=== PATIENT | male | born 1950 | race Caucasian/White ===

== ENCOUNTER 2017-06-10 10:19 | Observation (INO) | payer OTHER ==
[2017-05-15 11:07] VITALS: BMI 26.0
--- NOTE | 2017-05-15 12:01 | PAT Medication Instructions ---
Service Date May 15, 2017. Current Home Medication List Ascorbic Acid (Vitamin C), 1 TAB PO QAM Aspirin (Aspirin Chewable), 81 MG PO QAM Baclofen (Lioresal), 20 MG PO BID Calcium/Vitamin D (Os-Jimmie 500 Plus D), 1 TAB PO QAM Cranberry (Vaccinium Macrocarp (Cranberry Extract), 2 CAP PO QAM Donepezil Hydrochloride (Aricept), 1 TAB PO HS Duloxetine Hcl (Cymbalta), 60 MG PO QAM Lisinopril (Zestril), 20 MG PO QAM Memantine Hcl (Namenda Xr), 1 CAP PO QPM Vitamin E (Cvs Vitamin E), QAM Medication Instructions For Your Scheduled Surgery - Check with surgeon for instructions: Aspirin (Aspirin Chewable), 81 MG PO QAM - Hold the following medications 2 weeks prior to surgery: Vitamin E (Cvs Vitamin E), QAM Cranberry (Vaccinium Macrocarp (Cranberry Extract), 2 CAP PO QAM - Hold the following medications the morning of surgery: Lisinopril (Zestril), 20 MG PO QAM Ascorbic Acid (Vitamin C), 1 TAB PO QAM Calcium/Vitamin D (Os-Jimmie 500 Plus D), 1 TAB PO QAM - Take the following medications the morning of surgery with a sip of water OTHERWISE NOTHING TO EAT OR DRINK AFTER MIDNIGHT: Baclofen (Lioresal), 20 MG PO BID Duloxetine Hcl (Cymbalta), 60 MG PO QAM - Take the following medications as scheduled the night before surgery: Memantine Hcl (Namenda Xr), 1 CAP PO QPM Baclofen (Lioresal), 20 MG PO BID Donepezil Hydrochloride (Aricept), 1 TAB PO HS If you have any questions please call us at [phone] or [phone] or [phone]
[2017-05-15 12:29] LABS: BASO % 0.5 %; BASO ABS # 0.04 K/uL (0-0.2); EOS % 1.8 %; EOS ABS # 0.16 K/uL (0-0.5); HEMATOCRIT 41.6 % (42-52); HEMOGLOBIN 14.1 g/dL (14.0-18.0); IG# 0.05 K/uL (0.00-0.02); LYMPH ABS # 1.06 K/uL (1.2-3.4); MEAN CELL VOLUME 90.2 fL (80-100); MEAN CORPUSCULAR HEMOGLOBIN 30.6 pg (25-34); MEAN CORPUSCULAR HGB CONC 33.9 g/dl (32-36); MEAN PLATELET VOLUME 10.3 fL (7.4-10.4); MONO % 6.7 %; MONO ABS # 0.59 K/uL (0.11-0.59); NEUT % 78.4 %; NEUT ABS # 6.91 K/uL (1.4-6.5); PLATELET COUNT 230 K/uL (130-400); RED CELL DISTRIBUTION WIDTH CV 13.4 % (11.5-14.5); RED CELL DISTRIBUTION WIDTH SD 43.7 fL (36.4-46.3); WHITE BLOOD COUNT 8.81 K/uL (4.8-10.8)
[2017-05-15 14:02] LABS: CALCIUM 9.4 mg/dl (8.5-10.1); CREATININE 0.88 mg/dl (0.60-1.40); POTASSIUM 4.3 mmol/L (3.5-5.1)
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
[2017-06-10] VITALS (9 sets, daily range): BP systolic 118–149; BP diastolic 72–83; PULSE 74–95; TEMP 36.5–36.8; O2SAT 96–100; Ht 180.3 cm; Wt 89.9 kg
[~2017-06-10] VITALS: Ht 180.3 cm; Wt 89.9 kg
[~2017-06-10 10:19] MED LIST: ASCA500 PO; ASPCH81X PO; BACL10TA PO; CALC500C70 PO; CEFAZOLIN 2000 MG/60 ML D5W 50 ML IV SCH; CRAN200C PO; DONE10TA12 PO; DULO60CA44 PO; LACTATED RINGER'S 1000ML 1,000 ML IV SCH; LISI-725 PO; MEMA1CAP6 PO; VITA-88 PO
[2017-06-10] MEDS ORDERED: VANCOMYCIN 1GM/270ML NSS IV SCH (11:00)
--- NOTE | 2017-06-10 11:40 | History & Physical Bridge Note ---
H&P Re-Evaluation Bridge Note: I have examined the patient, reviewed the History & Physical and in the interval since the performance of the History & Physical I have noted the following changes of clinical significance: No changes noted
[2017-06-10] MEDS ORDERED: LIDO 2%/EPINEPHRINE 1:100000 20 ML VIAL INFIL ONE (12:54)
[2017-06-10] MEDS ORDERED: BACITRACIN 50000 UNIT VIAL ONE (12:55)
[2017-06-10] MEDS ORDERED: BUPIVACAINE/EPINEPHRINE 0.25% 1:200,000 30 ML VIAL ONE (12:55)
[2017-06-10] MEDS ORDERED: DEXAMETHASONE SOD INJ 4 MG/ML VIAL ONE (12:57)
[2017-06-10] MEDS ORDERED: ONDANSETRON INJ 2 MG/ML 2 ML VIAL ONE (12:57)
[2017-06-10] MEDS ORDERED: GLYCOPYRROLATE INJ 0.2 MG/ML VIAL ONE ×2 (12:57→14:11)
[2017-06-10] MEDS ORDERED: LIDOCAINE HCL 2% 2 ML VIAL (20MG/ML) ONE (12:57)
[2017-06-10] MEDS ORDERED: NEOSTIGMINE METHYLSULFATE 5 MG/5 ML SYR ONE (12:58)
[2017-06-10] MEDS ORDERED: PROPOFOL IV EMULSION 10 MG/ML 20 ML VIAL IV ONE (12:58)
[2017-06-10] MEDS ORDERED: MIDAZOLAM HCL 1 MG/ML 2ML VIAL ONE (12:58)
[2017-06-10] MEDS ORDERED: FENTANYL CITRATE INJ 50 MCG/1 ML 2 ML VIAL ONE (12:58)
[2017-06-10] MEDS ORDERED: HYDROmorphone INJ 1 MG/ML SYR IV PRN (13:00)
[2017-06-10] MEDS ORDERED: FENTANYL CITRATE INJ 50 MCG/1 ML 2 ML VIAL IV PRN (13:00)
[2017-06-10] MEDS ORDERED: ONDANSETRON INJ 2 MG/ML 2 ML VIAL IV PRN (13:00)
[2017-06-10] MEDS ORDERED: EpHEDrine SULFATE INJ 50 MG/ML AMP IV PRN (13:00)
[2017-06-10] MEDS ORDERED: ATROPINE SULFATE 0.1 MG/ML 5ML SYR IV PRN (13:00)
[2017-06-10] MEDS ORDERED: EpHEDrine SULFATE 50MG/5ML SYR ONE (14:11)
[2017-06-10] MEDS ORDERED: PHENYLEPHRINE HCL INJ 10 MG/ML VIAL ONE (14:11)
[2017-06-10] MEDS ORDERED: SODIUM CHLORIDE 0.9% INJ 10 ML VIAL ONE (14:11)
[2017-06-10] MEDS ORDERED: EpHEDrine SULFATE INJ 50 MG/ML AMP ONE (14:11)
[2017-06-10] MEDS ORDERED: ARISTA ABSORBABLE HEMOSTAT 3GM IT ONE (15:32)
[2017-06-10] MEDS ORDERED: FLOSEAL HEMOSTATIC MATRIX 10ML TOP ONE (15:33)
--- NOTE | 2017-06-10 15:59 | [facility] Post Operative Brief Note ---
Immediate Operative Summary Operative Date Jun 10, 2017. Pre-Operative Diagnosis Intrathecal catheter fracture Post-Operative Diagnosis Same Procedure(s) Performed Replacement of Intrathecal Pain Pump and Catheter Delivery System, Reprogramming and Analysis Surgeon Dr. Coyne [employer] Worker Surgeon(s) Dr. Vieira Estimated Blood Loss 50 cc Findings uncomplicated pump revision Specimens A. Explanted hardware Drains none Anesthesia GA LMA Complication(s) None Disposition Recovery Room / PACU
[2017-06-10] MEDS ORDERED: ZOLPIDEM TARTRATE 5 MG TAB PO PRN (16:00)
[2017-06-10] MEDS ORDERED: ONDANSETRON INJ 8 MG in DEXTROSE 5% 50ML 50 ML IV PRN (16:00)
[2017-06-10] MEDS ORDERED: HYDROmorphone INJ 0.5 MG/0.5 ML SYR IV PRN (16:00)
[2017-06-10] MEDS ORDERED: MAGNESIUM CITRATE 296 ML/BTL PO PRN (16:00)
[2017-06-10] MEDS ORDERED: BACLOFEN TAB 20 MG TAB PO PRN (16:00)
[2017-06-10] MEDS ORDERED: ACETAMINOPHEN 500 MG TAB PO PRN (16:00)
--- NOTE | 2017-06-10 16:37 | Anesthesiology Progress Note ---
Anesthesia Post Op Note Date & Time Jun 10, 2017 at 16:37 Vital Signs Pain Intensity: 0 Vital Signs Past 12 Hours Date Time Temp Pulse Resp B/P (MAP) Pulse Ox O2 Delivery O2 Flow Rate FiO2 06/10/17 16:35 83 16 113/70 100 Nasal Cannula 3 06/10/17 16:25 87 16 111/70 100 Nasal Cannula 3 06/10/17 16:15 86 16 110/72 100 Oxymask 5 06/10/17 16:09 36.2 87 16 116/71 100 Oxymask 5 06/10/17 10:45 36.5 91 20 146/83 (104) 99 Room Air Notes Mental Status: alert / awake / arousable, participated in evaluation Pt Amnestic to Procedure: Yes Nausea / Vomiting: adequately controlled Pain: adequately controlled Airway Patency, RR, SpO2: stable & adequate BP & HR: stable & adequate Hydration State: stable & adequate Anesthetic Complications: no major complications apparent
--- NOTE | 2017-06-10 16:42 | Operative Note-Pain Management ---
Pain Clinic Operative Note Intrathecal REVISION, Catheter access port study, and Postprocedure Reprogramming and Analysis PREOPERATIVE DIAGNOSIS: Spinal cord injury with spasticity and fractured intrathecal catheter POSTOPERATIVE DIAGNOSIS: Same. COMPLICATIONS: None. SURGEON: Dr. Gina Coyne. Asst. Dr. Simmons EBL: 50ml ANESTHESIA: General. MATERIAL FORWARDED TO THE LAB: None. INDICATIONS: The patient is a known intrathecal catheter fracture and agreed to intrathecal pump and catheter revision. The patient was explained the risks, benefits, alternatives of the procedure and agreed to proceed as above. Informed consent was obtained and witnessed. A time out was performed after the patient was brought into the Operating Room. Antibiotics were given. SCDs were placed on the patient for DVT prophylaxis. The patient was then induced with general anesthesia without complications and was placed in left lateral decubitus position. Fluoroscopy was utilized throughout the procedure. The skin was prepped with duraprep and betadine and draped in sterile fashion. An 18- gauge spinal needle was used to gain access to the CSF through the L1-2 interspace. No heme was noted. Positive CSF flow was obtained and the intrathecal catheter was passed to the T10 vertebral body. The stylet was then removed. A 1-1/2 inch midline incision was made surrounding the intrathecal needle. Hemostasis was achieved. 4 separate pursestring sutures were placed to minimize CSF leakage. The intrathecal catheter was then secured to the fascia with 2 purse string 0 silk ties. Then the spinal needle was removed and a Kwartertronic butterfly anchor to secure the catheter to the underlying supraspinous ligament was utilized. There was positive CSF flow from the intrathecal catheter after anchoring of the catheter to the fascia. The incision was irrigated with bacitracin infused saline and hemostasis was excellent. Finally given history of CSF leak after last catheter revision 3 mL of FloSeal was utilized to minimize CSF leakage risk. Next the old pump was excised from the right lower quadrant a pocket for the intrathecal pump was made and hemostasis was achieved. Expansion of the pocket was on necessary and that capsule was ligated with electrocautery. Hemostasis was easily achieved with electrocautery and Surgicel. A passer was used to transfer the intrathecal pump catheter underneath the skin and subcutaneous tissues through to the pocket incision. After transfer of the end of the catheter to the pocket incision aspiration of the intrathecal catheter revealed positive CSF flow free flowing. The axial thoracic incisions was irrigated with 3 bulb syringes full of sterile normal saline with bacitracin. Hemostasis was achieved. The intrathecal pump was filled was rinsed and filled with morphine 5mg/ml per protocol. The intrathecal catheter was not trimmed. The sutureless connector was connected to the end the intrathecal pump and aspiration from of the end of the catheter was free-flowing. It was then connected to the intrathecal pump per protocol. The intrathecal pump was anchored in the pocket with 4 0 Prolene sutures. Alysha was utilized in both incisions to minimize bleeding. No complications were noted after the intrathecal pump was placed inside the pocket. The skin and subcutaneous tissues of both incisions were closed with O-VLOC sutures, then 3-0 VLOC sutures , followed by dermabond Prineo dressing. The skin was cleansed and dried and Xeroform followed by 4 x 4's and Tegaderms and pressure dressing Gauze fluffs were placed for closure dressings. An abdominal binder was placed on the patient. No complications were noted throughout the procedure. The patient tolerated the procedure and general anesthesia well and was extubated at the end of the procedure. The patient was then transferred back to the [facility] and was taken to the recovery room in stable condition. The patient will follow up with our clinic at 7 days for a wound check and further care. . Pump size inserted: 40ml Level of catheter: T10 Catheter was not trimmed Medication placed in pump: Baclofen 2000 mcg/mL to run at 99.9 g per day simple continuous mode I attest to the content of the Intraoperative Record and any orders documented therein. Any exceptions are noted below.
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
[2017-06-10] MEDS ORDERED: VANCOMYCIN IV 1,000 MG in SODIUM CHLORIDE 0.9% 250ML 250 ML IV SCH (18:00)
--- NOTE | 2017-06-10 19:34 | NUR ---
A: Patient resting in room. denies CP or SOB. VSS. Dressing to abdomen intact. + pedal pulses. able to move toes. Verbalizes "feeling much better" call morley within reach. Verbalizes no needs at this time.
[2017-06-10] MEDS: DOCUSATE SODIUM 100 MG CAP PO SCH (20:04)
[2017-06-10] MEDS ORDERED: DONEPEZIL HCL 10 MG TAB PO SCH (21:00)
[2017-06-10] MEDS ORDERED: IV FLUIDS COMPLETED PRN (21:15)
[2017-06-11 00:02] VITALS: O2SAT 98
--- NOTE | 2017-06-11 00:02 | NUR ---
A: Patient A&O, denies pain, reports "legs aren't jumping anymore." Patient able to move B/L toes and able to lift B/L legs off bed. Dressing to midline abdomen and lower back, both dry and intact, no shadowing noted. Abdominal binder intact. Patient voices no complaints, call morley in reach. Repositioned for comfort. Will monitor.
[2017-06-11 03:26] VITALS: BP 98/58; PULSE 77; TEMP 36.7; O2SAT 95
--- NOTE | 2017-06-11 04:00 | NUR ---
A: Patient resting through the night, no change from previous assessment. See Interventions for complete assessment. Call morley in reach.
[2017-06-11 07:41] VITALS: BP 147/88; PULSE 91; TEMP 36.8; O2SAT 95
--- NOTE | 2017-06-11 07:45 | NUR ---
A/ID; Patient resting in bed smiling at staff. c/o arthritic pain in bilateral hands. dressings x3 C/D/I. abdominal binder intact. noted small amount of spasms in bilateral legs. SR with PAC in 90's. Patient is able to raise his legs off bed and wiggles his toes. repositioned. call morley within reach.
[2017-06-11] MEDS: DOCUSATE SODIUM 100 MG CAP PO SCH (07:48)
[2017-06-11 08:00] VITALS: O2SAT 98
[2017-06-11] MEDS ORDERED: PNEUMOCOCCAL POLYSACCHARIDES 25 MCG/0.5 ML VIAL/SYR IM. ONE (08:00)
[2017-06-11] MEDS ORDERED: PNEUMOCOCCAL ADMINISTRATION CHARGE ONE (08:00)
[2017-06-11] MEDS ORDERED: DULOXETINE HCL 60 MG CAP PO SCH (09:00)
[2017-06-11] MEDS ORDERED: ASCORBIC ACID 500 MG TAB PO SCH (09:00)
[2017-06-11] MEDS ORDERED: LISINOPRIL 20 MG TAB PO SCH (09:00)
[2017-06-11] MEDS ORDERED: CALCIUM 600MG + VIT D 400 IU TAB PO SCH (09:00)
--- NOTE | 2017-06-11 09:22 | NUR ---
Dr. Simmons was in rounding. dressings changed. Baclofen increased by 5 mg's for mild leg spasms. patient is being discharge to home today. Neville was made aware. Call morley within reach.
--- NOTE | 2017-06-11 09:22 | Discharge Instructions ---
Discharge Instructions Date of Service Jun 11, 2017. Visit Reason for Visit: Lower Extremity Spastic Paraparesis from thoracic spinal cord injury. Nonfunctioning intrathecal baclofen delivery system. Implantation of new intrathecal drug delivery system with baclofen infusion. Discharge Discharge Diagnosis / Problem: post traumatic spinal cord injury spasticity Discharge Goals Goal(s): Decrease discomfort Medications Stopped Medications Name(s): Oral baclofen Activity Recommendations Activity Recommendations: no lifting of items 5lbs or more, no repetitive bending, no repetitive twists, no repetitive reaching over head Lifting Limitations: no more than 5 pounds Exercise/Sports Limitations: until after follow-up appointment May Resume Sexual Activity: after follow-up appointment Shower/Bathe: may shower/bathe in 3 days Driving or Machine Use: Anesthesia . Post Anesthesia Instructions: If you have had General Anesthesia or IV Sedation: * Do not drive today. * Resume driving when surgeon permits. * Do not make important decisions or sign legal documents today. * Call surgeon for: * Temperature elevations greater than 101 degrees F. * Uncontrollable pain. * Excessive bleeding. * Persistent nausea and vomiting. * Medication intolerance (nausea, vomiting or rash). * For nausea and vomiting use only clear liquids such as: tea, soda, bouillon until nausea subsides, then gradually increase diet as tolerated. * If you have any concerns or questions, call your surgeon's office. If physician is unavailable and it is an emergency, call [phone] or go to the nearest emergency room. . Instructions Instructions / Follow-Up . * Change dressings daily. Apply sterile dry gauze. * Call [facility] [phone] or go to the nearest emergency room if he experience high fevers, new back pain, new neurological symptoms such as numbness or weakness in the lower extremity or new bowel bladder incontinence. Also of call if he experience a headache that is positional. * Wear abdominal binder. * No showers for 3 days. * Resume normal activity. No repetitive bending, twisting or reaching overhead for 2 weeks. Do not lift more than 5 pounds for 2 weeks. . Follow-Up Follow-Up: 1 week in office for wound check Diet Recommendations Home Diet: resume previous diet Procedures Procedures Performed: Replacement of Intrathecal Pain Pump and Catheter Delivery System, Reprogramming and Analysis Pending Studies Studies pending at discharge: no Medical Emergencies . Who to Call and When: Medical Emergencies: If at any time you feel your situation is an emergency, please call 911 immediately. . Non-Emergent Contact Non-Emergency issues call your: Primary Care Provider, Pain Management provider Call Non-Emergent contact if: temperature is above 101.5, your pain is not controlled, wound has increased drainage, wound has increased redness . . "Provider Documentation" section prepared by Ray Vieira. . [place] Drug Monitoring Program Search Results: patient reviewed within database, no issues identified
[2017-06-11] MEDS: HYDROCODONE/ACETAMIN 5/325MG TAB PO PRN ×2 (09:36→14:56)
--- NOTE | 2017-06-11 09:36 | NUR ---
Patient c/o arthritis in his fingers. medication given per order.
--- NOTE | 2017-06-11 10:12 | Discharge Summary ---
Discharge Summary Date of Service Jun 11, 2017. Discharge Summary Admission Date: Jun 10, 2017 at 16:07 Discharge Date: Jun 11, 2017 Discharge Disposition: Home Principal Diagnosis: Spasticity Procedures: Implantation of intrathecal medication delivery system Vaccinations: None Consultations: None Pending Studies/Follow-Up: None Medication Reconciliation Continued Medications: Ascorbic Acid (Vitamin C) 500 Mg Tab 1 TAB PO QAM Aspirin (Aspirin Chewable) 81 Mg Chew 81 MG PO QAM Calcium/Vitamin D (Os-Jimmie 500 Plus D) Tab 1 TAB PO QAM, TAB Cranberry (Vaccinium Macrocarp (Cranberry Extract) 200 Mg Cap 2 CAP PO QAM Donepezil Hydrochloride (Aricept) 10 Mg Tab 1 TAB PO HS for 30 Days, #30 TAB 5 Refills Duloxetine Hcl (Cymbalta) 60 Mg Cap 60 MG PO QAM, CAP Lisinopril (Zestril) 20 Mg Tab 20 MG PO QAM, TAB Memantine Hcl (Namenda Xr) 21 Mg Cap 1 CAP PO QPM Vitamin E (Cvs Vitamin E) 400 Unit Cap QAM Discontinued Medications: Baclofen (Lioresal) 10 Mg Tab 20 MG PO BID, TAB Hospital Course Uneventful POD 1. Pump increased to 105 mcg/day Total time spent on discharge = This includes examination of the patient, discharge planning, medication reconciliation, and communication with other providers. Discharge Instructions Given
--- NOTE | 2017-06-11 10:33 | Pain Management Progress Note ---
Pain Management Progress Note Date of Service Jun 11, 2017. Subjective Improved spasms with intrathecal baclofen at 100 mcg/24 hr dose. Able to sleep well last night without being awakened at night. Reports minimal pain at wound sites. Objective Vital Signs: Last Vital Signs Documentation Date Time Temp Pulse Resp B/P (MAP) Pulse Ox O2 Delivery O2 Flow Rate FiO2 06/11/17 07:41 36.8 91 18 147/88 (107) 95 Room Air 06/10/17 22:00 2.0 Laboratory Laboratory Findings 05/15/17 12:04 Red Blood Count 4.61 L, Mean Corpuscular Volume 90.2, Mean Corpuscular Hemoglobin 30.6, Mean Corpuscular Hemoglobin Concent 33.9, Mean Platelet Volume 10.3, Neutrophils (%) (Auto) 78.4, Lymphocytes (%) (Auto) 12.0, Monocytes (%) ( Auto) 6.7, Eosinophils (%) (Auto) 1.8, Basophils (%) (Auto) 0.5, Neutrophils # ( Auto) 6.91 H, Lymphocytes # (Auto) 1.06 L, Monocytes # (Auto) 0.59, Eosinophils # (Auto) 0.16, Basophils # (Auto) 0.04 [place] Drug Monitoring [place] Search Results: patient reviewed within database Assessment 1. Spasticity due to thoracic spinal cord injury. S/P Implantation, analysis and reprograming of intrathecal baclofen system. Uneventful POD 1. Recommendations 1. Dressings changed. No evidence of bleeding or discharge. 2. Discharge home today.
[2017-06-11 11:34] VITALS: BP 113/61; PULSE 80; TEMP 36.6; O2SAT 96
[2017-06-11 12:26] VITALS: BP 113/61; PULSE 80; TEMP 36.6; O2SAT 96
--- NOTE | 2017-06-11 12:33 | NUR ---
Discharge instructions given to patient with him verbalizing understanding. Requested this RN also go over instruction with his . saline lock dc'd/ cath tip intact. Pressure dressing applied. Prescription for Baclofen 10 mg's and [place] 5/325 for count of 45 given to patient per order. half dressed. waiting on for discharge.
--- NOTE | 2017-06-11 13:08 | Anesthesiology Progress Note ---
Anesthesia Post Op Note Date & Time Jun 11, 2017 at 13:07 Vital Signs Vital Signs Past 12 Hours Date Time Temp Pulse Resp B/P (MAP) Pulse Ox O2 Delivery O2 Flow Rate FiO2 06/11/17 12:26 36.6 80 18 96 Nasal Cannula 06/11/17 12:00 Room Air 06/11/17 11:34 36.6 80 18 113/61 (78) 96 Room Air 06/11/17 08:00 98 Room Air 06/11/17 07:41 36.8 91 18 147/88 (107) 95 Room Air 06/11/17 04:05 Room Air 06/11/17 03:26 36.7 77 18 98/58 (71) 95 Room Air
--- NOTE | 2017-06-11 14:31 | NUR ---
Patient in wheelchair all ready to go home. just arrived. rings and c/o muscle spasms every 20 seconds in right leg. Stated "It keeps jumping up!" " I was told to call!" Dr. Simmons was called.
--- NOTE | 2017-06-11 15:05 | NUR ---
Dr. Simmons's office was called. This RN spoke with RN and PA. Order received to give Baclofen 10 mg's and that if patient continue to have spasms. patient is to call office. They can increase dose tomorrow but not today because it was already increased. patient also c/o back pain and requested [place]. Both werre given and patient left with his with belongings to door in wheelchair.
[2017-06-17] MEDS ORDERED: HYDR-5688 PO (10:45)
[2017-07-18] MEDS ORDERED: ZFRI4 IV (18:26)
[2017-07-18] MEDS ORDERED: LRS10 PO (18:26)
[2017-07-18] MEDS ORDERED: MRLP17X PO (18:26)
[2017-07-18] MEDS ORDERED: DLDI.5 IV (18:26)
== END 2017-06-11 15:18 | disposition home or self-care (01) ==
LOC: C.ACU 10:19 → C.2T 16:07 → ENRESERV 16:49
PROVIDERS: ADMIT Anesthesiology; ATTEND Anesthesiology
DX: T85.610A Breakdown (mechanical) of cranial or spinal infusion catheter, initial encounter (principal); Y83.8 Other surgical procedures as the cause of abnormal reaction of the patient, or of later complication, without mention of misadventure at the time of the procedure; M62.838 Other muscle spasm; I10 Essential (primary) hypertension; M19.90 Unspecified osteoarthritis, unspecified site; Z88.0 Allergy status to penicillin; Z79.82 Long term (current) use of aspirin; Z98.890 Other specified postprocedural states; N31.8 Other neuromuscular dysfunction of bladder

== ENCOUNTER 2017-07-14 23:13 | Inpatient (IN) | payer OTHER ==
[~2017-07-14] VITALS: Ht 180.3 cm; Wt 95.0 kg
[~2017-07-14 23:13] MED LIST changes: -BACL10TA PO; -CEFAZOLIN 2000 MG/60 ML D5W 50 ML IV SCH; +HYDR-5688 PO; -LACTATED RINGER'S 1000ML 1,000 ML IV SCH
--- NOTE | 2017-07-14 23:48 | EMERGENCY ROOM VISIT NOTE ---
History Report prepared by Kassandra: Lovely Calixto Under the Supervision of: Dr. Suzanne Luna D.O. First contact with patient: 23:22 Chief Complaint: WOUND INFECTION Stated Complaint: SURGICAL SITE LEAKING, FEVER History of Present Illness The patient is a 67 year old male who presents to the Emergency Room with complaints of an episode of a possible wound infection. The patient reports his baclofen pump is "leaking pus". The patient had his pump put in on June 10. This is the patient's fourth pump. Per , the patient's line broke in his last pump so he had to have it replaced. At baseline, the patient is in the a wheelchair. Per , the patient had a back injury which is why he is in a wheelchair. The patient notes a fever of 103 degrees Fahrenheit occurring this afternoon. The patient notes increased back pain and decreased appetite over the past couple days. He also notes intermittent spasms which worsen when he moves. He states these spasms are new for him. The patient self catheterizes and his was concerned he had a UTI. The patient's brought a urine sample to the patient's PCP today and he was started on Keflex. He states he took one dose of the antibiotic so far. Source of History: patient Position: other (possible) Quality: other (wound infection) Timing: other (episode) Associated Symptoms: + fevers, + back pain Note: The patient notes decreased appetite and muscle spasms. Review of Systems See HPI for pertinent positives & negatives. A total of 10 systems reviewed and were otherwise negative. 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 Social History Smoking Status: Never Smoker Marital Status: Occupation Status: disabled Current/Historical Medications Scheduled Ascorbic Acid (Vitamin C), 1 TAB PO QAM Aspirin (Aspirin Chewable), 81 MG PO QAM Calcium/Vitamin D (Os-Jimmie 500 Plus D), 1 TAB PO QAM Cranberry (Vaccinium Macrocarp (Cranberry Extract), 2 CAP PO QAM Donepezil Hydrochloride (Aricept), 10 MG PO HS Duloxetine Hcl (Cymbalta), 60 MG PO QAM Hydrocodone/Acetaminophen 5MG/325MG ([place] 5MG/325MG), 0.5 TAB PO BID Lisinopril (Zestril), 20 MG PO QAM Memantine Hcl (Namenda Xr), 1 CAP PO QPM Vitamin E (Cvs Vitamin E), 400 MG PO QAM Allergies Coded Allergies: Penicillins (Verified Allergy, Unknown, UNKNOWN, 07/14/17) Sulfamethoxazole w/Trimethoprim (Verified Allergy, Unknown, PENIS RED, INFECTION, 07/14/17) Haloperidol (Unverified Adverse Reaction, Intermediate, Confusion,agitated ,hallucinations, 07/14/17) Physical Exam Vital Signs Date Time Temp Pulse Resp B/P (MAP) Pulse Ox O2 Delivery O2 Flow Rate FiO2 07/15/17 02:58 97 18 104/52 91 Room Air 07/15/17 02:32 37.4 07/15/17 02:10 92 Room Air 07/15/17 02:08 97 16 117/56 92 Room Air 07/15/17 00:20 94 07/14/17 23:15 36.8 97 18 128/76 98 Room Air Physical Exam HEENT: Head - normocephalic and atraumatic Pupils are equal, round, and reactive to light. Extraocular eye muscles are intact, and sclera are anicteric. Nose - moist nasal mucosa without discharge. Mouth - dry buccal mucosa. Oropharynx is nonerythematous and there is no tonsillar exudate or edema noted. Neck: Supple; no JVD, nuchal rigidity, cervical lymphadenopathy, or auscultated bruits. Heart: Tachycardic rate and regular rhythm. There is a normal S1 and S2 with no murmurs, clicks, or gallops appreciated. Lungs: Clear to auscultation bilaterally with no wheezes, rales, or rhonchi. Abdomen: Moderate erythema in RLQ surrounding surgical incision with obvious pus coming from the incision. Soft, completely nontender, nondistended, with good bowel sounds. There are no palpable pulsatile masses or hepatosplenomegaly. There is no guarding, rigidity, or rebound noted. Extremities: No evidence of cyanosis, clubbing, or edema. There are easily palpable peripheral pulses. Skin: Hot and dry with good turgor and no rashes. Medical Decision & Procedures ER Provider Diagnostic Interpretation: Radiology results as stated below per my review and the radiologist's interpretation: CT ABDOMEN & PELVIS With Contrast: Ovoid fluid collection with trace air superior to the right lower quadrant subcutaneous pump, measuring 10.1 x 2.56 cm , suspicious for abscess. 3.6 x 1.8 cm fluid collection adjacent to catheter tubing posterior to the L1 spinous process, possible contained catheter leak versus abscess. Cholelithiasis. Gallbladder is nondistended. Appendix is normal. Colonic diverticulosis without evidence of diverticulitis. Small hiatal hernia. IVC filter is present. Partially imaged thoracic spinal fusion hardware. Radiologist: Nitish Ochoa Portable Chest X-ray: Mcclain rods in place no pulmonary infiltrates or pulmonary effusions. Laboratory Results 07/15/17 00:05 Red Blood Count 4.30, Mean Corpuscular Volume 90.2, Mean Corpuscular Hemoglobin 29.3, Mean Corpuscular Hemoglobin Concent 32.5, Mean Platelet Volume 10.4, Neutrophils (%) (Auto) 87.3, Lymphocytes (%) (Auto) 5.7, Monocytes (%) (Auto) 6.5, Eosinophils (%) (Auto) 0.0, Basophils (%) (Auto) 0.1, Neutrophils # (Auto) 19.30, Lymphocytes # (Auto) 1.26, Monocytes # (Auto) 1.44, Eosinophils # (Auto) 0.00, Basophils # (Auto) 0.03 07/15/17 00:05 Test 07/15/17 00:05 07/15/17 00:28 07/15/17 00:30 White Blood Count 22.11 K/uL (4.8-10.8) Red Blood Count 4.30 M/uL (4.7-6.1) Hemoglobin 12.6 g/dL (14.0-18.0) Hematocrit 38.8 % (42-52) Mean Corpuscular Volume 90.2 fL (80-100) Mean Corpuscular Hemoglobin 29.3 pg (25-34) Mean Corpuscular Hemoglobin Concent 32.5 g/dl (32-36) Platelet Count 177 K/uL (130-400) Mean Platelet Volume 10.4 fL (7.4-10.4) Neutrophils (%) (Auto) 87.3 % Lymphocytes (%) (Auto) 5.7 % Monocytes (%) (Auto) 6.5 % Eosinophils (%) (Auto) 0.0 % Basophils (%) (Auto) 0.1 % Neutrophils # (Auto) 19.30 K/uL (1.4-6.5) Lymphocytes # (Auto) 1.26 K/uL (1.2-3.4) Monocytes # (Auto) 1.44 K/uL (0.11-0.59) Eosinophils # (Auto) 0.00 K/uL (0-0.5) Basophils # (Auto) 0.03 K/uL (0-0.2) RDW Standard Deviation 44.5 fL (36.4-46.3) RDW Coefficient of Variation 13.6 % (11.5-14.5) Immature Granulocyte % (Auto) 0.4 % Immature Granulocyte # (Auto) 0.08 K/uL (0.00-0.02) Prothrombin Time 10.3 SECONDS (9.0-12.0) Prothromb Time International Ratio 1.0 (0.9-1.1) Activated Partial Thromboplast Time 31.7 SECONDS (21.0-31.0) Partial Thromboplastin Ratio 1.2 Anion Gap 10.0 mmol/L (3-11) Estimated GFR () 86.1 Estimated GFR (Non- 74.3 BUN/Creatinine Ratio 25.7 (10-20) Calcium Level 9.2 mg/dl (8.5-10.1) Total Bilirubin 0.7 mg/dl (0.2-1) Aspartate Amino Transf (AST/SGOT) 41 U/L (15-37) Alanine Aminotransferase (ALT/SGPT) 34 U/L (12-78) Alkaline Phosphatase 85 U/L (45-117) Total Protein 8.0 gm/dl (6.4-8.2) Albumin 3.1 gm/dl (3.4-5.0) Globulin 4.9 gm/dl (2.5-4.0) Albumin/Globulin Ratio 0.6 (0.9-2) Chemistry Specimen Hemolysis Bedside Lactic Acid Venous 1.53 mmol/L (0.90-1.70) Urine Color YELLOW Urine Appearance CLEAR (CLEAR) Urine pH 5.0 (4.5-7.5) Urine Specific [place] 1.025 (1.000-1.030) Urine Protein 1+ (NEG) Urine Glucose (UA) NEG (NEG) Urine Ketones TRACE (NEG) Urine Occult Blood TRACE (NEG) Urine Nitrite NEG (NEG) Urine Bilirubin NEG (NEG) Urine Urobilinogen NEG (NEG) Urine Leukocyte Esterase TRACE (NEG) Urine WBC (Auto) 1-5 /hpf (0-5) Urine RBC (Auto) 0-4 /hpf (0-4) Urine Hyaline Casts (Auto) 1-5 /lpf (0-5) Urine Epithelial Cells (Auto) 20-30 /lpf (0-5) Urine Bacteria (Auto) NEG (NEG) Laboratory results per my review. Medications Administered Medications (Trade) Dose Ordered Sig/Narinder Route Start Time Stop Time Status Last Admin Dose Admin Daptomycin 500 mg/ Sodium Chloride 60 ml @ 100 mls/hr NOW STAT IV 07/15/17 00:52 07/15/17 01:27 DC 07/15/17 01:41 100 MLS/HR Aztreonam 2000 mg/ Dextrose 110 ml @ 100 mls/hr NOW STAT IV 07/15/17 00:52 07/15/17 01:57 DC 07/15/17 02:15 100 MLS/HR Sodium Chloride 1,000 ml @ 250 mls/hr Q4H STAT IV 07/15/17 01:25 07/15/17 04:46 DC 07/15/17 02:15 250 MLS/HR Hydromorphone HCl (Dilaudid Inj) 1 mg NOW STAT IV 07/15/17 01:39 07/15/17 01:40 DC 07/15/17 01:46 1 MG Procedure Aztreonam IV, Daptomycin IV, NSS IV, Dilaudid IV. ECG Indication: other (sepsis) Rate (beats per minute): 90 Rhythm: normal sinus Findings: PAC, no acute ischemic change ED Course 2326: Past medical records reviewed. The patient was evaluated in room B6. A complete history and physical exam was performed. A septic protocol was performed. 0052: Ordered Azetreonam 2,000 mg/Dextrose 110 ml @ 100 mls/hr, Daptomycin 500 mg/Sodium Chloride 60 ml @ 100 mls/hr IV. 0125: Ordered Sodium Chloride 1000 ml @ 250 mls/hr IV. 0128: Discussed the patient's case with Dr. Flores. The patient will be evaluated for further management. 0135: The patient is still having pain and will be headed to CT. 0139: Ordered Dilaudid Inj 1 mg IV. 024: Discussed the patient's case with Dr. Aguillon. He recommended talking to Dr. Coyne or Dr. Simmons because he does not manage pain pumps. 025: I updated the patient on his test results and the treatment plan. 2058: Dr. Wilson recommends talking to Dr. WanSurgery. 309: Discussed the patient's case with Dr. WanSurgery. He recommend talking to the pain management physician who put the pump in. They will be consulted when they are correctional officer. Medical Decision The patient is a 67 year old male who presents to the ED with a possible wound infection. Differential diagnosis includes sepsis, abscess surrounding pain pump , cellulitis, UTI. Lab results show: white count 22.1, mild anemia with hemoglobin 12.6, 87 percent neutrophils, lactic acid 1.5, glucose 113, BUN 27, creatinine 1, LFT and coags normal, urinalysis does not appear to be infected. It seems that the patient has abscess formation surrounding the intrathecal pump in the right lower quadrant of the abdomen and potentially extending towards the spine. The patient is hemodynamically stable. The patient does admit that he is having increased back pain and spasms over the past couple of days with associated fever that started today. The patient has significant leukocytosis with obvious pus coming from the surgical incision. Medication Reconcilliation Current Medication List: was personally reviewed by md Blood Pressure Screening Patient's blood pressure: Elevated blood pressure Blood pressure disposition: Referred to PCP (evaluated by hospitalist) Consults Time Called: 0128 Consulting Physician: Dr. Flores Returned Call: 0128 Discussed the patient's case with Dr. Flores. The patient will be evaluated for further management. Additional Consults: Time Called: 0246 Consulted Physician: Dr. Aguillon Returned Call: 024 Additional Comments: Discussed the patient's case with Dr. Aguillon. He recommended talking to Dr. Coyne or Dr. Simmons because he does not manage pain pumps. Time Called: 0308 Consulted Physician: Dr. Pleitez-Surgery Returned Call: 031 Additional Comments: Discussed the patient's case with Dr. Pleitez-Chapin. He recommend talking to the pain management physician who put the pump in. They will be consulted when they are correctional officer. Impression Primary Impression: Infection of intrathecal pump Additional Impression: Abdominal abscess Scribe Attestation The scribe's documentation has been prepared under my direction and personally reviewed by me in its entirety. I confirm that the note above accurately reflects all work, treatment, procedures, and medical decision making performed by me. Departure Information Dispostion Being Evaluated By Hospitalist Referrals Kang Cortez D.O. (PCP) Patient Instructions My [facility] Problem Qualifiers Primary Impression: Infection of intrathecal pump Encounter type: initial encounter Qualified Codes: T85.738A - Infection and inflammatory reaction due to other nervous system device, implant or graft, initial encounter
[2017-07-15] VITALS (10 sets, daily range): BP systolic 91–153; BP diastolic 46–75; PULSE 65–113; TEMP 36.5–39.3; O2SAT 90–100; Ht 180.3 cm; Wt 95.0 kg
[2017-07-15] MEDS ORDERED: OPTIRAY 320 IV PRN
[2017-07-15 00:44] LABS: BASO % 0.1 %; BASO ABS # 0.03 K/uL (0-0.2); HEMATOCRIT 38.8 % (42-52); HEMOGLOBIN 12.6 g/dL (14.0-18.0); IG# 0.08 K/uL (0.00-0.02); LYMPH % 5.7 %; LYMPH ABS # 1.26 K/uL (1.2-3.4); MEAN CELL VOLUME 90.2 fL (80-100); MEAN CORPUSCULAR HEMOGLOBIN 29.3 pg (25-34); MEAN CORPUSCULAR HGB CONC 32.5 g/dl (32-36); MEAN PLATELET VOLUME 10.4 fL (7.4-10.4); MONO % 6.5 %; MONO ABS # 1.44 K/uL (0.11-0.59); NEUT % 87.3 %; PLATELET COUNT 177 K/uL (130-400); RED CELL DISTRIBUTION WIDTH CV 13.6 % (11.5-14.5); RED CELL DISTRIBUTION WIDTH SD 44.5 fL (36.4-46.3); WHITE BLOOD COUNT 22.11 K/uL (4.8-10.8)
[2017-07-15] MEDS ORDERED: DAPTOmycin IV 500 MG in SODIUM CHLORIDE 0.9% 50ML 50 ML IV STA (00:52)
[2017-07-15] MEDS ORDERED: AZTREONAM IV 2,000 MG in DEXTROSE 5% 100ML 100 ML IV STA (00:52)
[2017-07-15 00:59] LABS: PTT PATIENT 31.7 SECONDS (21.0-31.0)
[2017-07-15 01:11] LABS: ALBUMIN 3.1 gm/dl (3.4-5.0); ALKALINE PHOSPHATASE 85 U/L (45-117); ALT/SGPT 34 U/L (12-78); AST/SGOT 41 U/L (15-37); BLOOD UREA NITROGEN 27 mg/dl (7-18); CALCIUM 9.2 mg/dl (8.5-10.1); CARBON DIOXIDE 26 mmol/L (21-32); CREATININE 1.03 mg/dl (0.60-1.40); GLUCOSE 113 mg/dl (70-99); POTASSIUM 4.3 mmol/L (3.5-5.1); SODIUM 137 mmol/L (136-145)
[2017-07-15] MEDS ORDERED: SODIUM CHLORIDE 0.9% 1000ML 1,000 ML IV STA (01:25)
[2017-07-15] MEDS ORDERED: HYDROmorphone INJ 1 MG/ML SYR IV STA (01:39)
--- NOTE | 2017-07-15 02:19 | History and Physical ---
History & Physical Date & Time of Service: Jul 15, 2017 at 02:05 Chief Complaint: Surgical Site Leaking, Fever Primary Care Physician: Kang Cortez D.O. History of Present Illness Source: patient 67 y/o M Hx paraplegia following spinal cord injury, neurogenic bladder, depression, HTN, DVT, traumatic brain injury. Pt had a revision of a Baclofen pump which was the 4th such revision. He developed pain and swelling in the area and then pain in his lower back. He could not confirm a fever. He denies additional acute symptoms. A large amount of pus was expressed from the surgery site by the ER attending. Past Medical/Surgical History 1) Paraplegia 2) HTN 3) Neurogenic bladder - self-catheterizes 4) Traumatic brain injury 5) Tib/fib fracture 6) DVT 7) Depression Surgical: 1) Brianna filter 2) Spinal fusion 3) Placement of Baclofen pump with multiple revisions Family History Patient reports no known family medical history. noncontributory Social History Smoking Status: Never Smoker Marital Status: Housing status: lives with significant other Occupational Status: disabled Allergies Coded Allergies: Penicillins (Verified Allergy, Unknown, UNKNOWN, 07/14/17) Sulfamethoxazole w/Trimethoprim (Verified Allergy, Unknown, PENIS RED, INFECTION, 07/14/17) Haloperidol (Unverified Adverse Reaction, Intermediate, Confusion,agitated ,hallucinations, 07/14/17) Home Medications Scheduled Ascorbic Acid (Vitamin C), 1 TAB PO QAM Aspirin (Aspirin Chewable), 81 MG PO QAM Calcium/Vitamin D (Os-Jimmie 500 Plus D), 1 TAB PO QAM Cranberry (Vaccinium Macrocarp (Cranberry Extract), 2 CAP PO QAM Donepezil Hydrochloride (Aricept), 10 MG PO HS Duloxetine Hcl (Cymbalta), 60 MG PO QAM Hydrocodone/Acetaminophen 5MG/325MG ([place] 5MG/325MG), 0.5 TAB PO BID Lisinopril (Zestril), 20 MG PO QAM Memantine Hcl (Namenda Xr), 1 CAP PO QPM Vitamin E (Cvs Vitamin E), 400 MG PO QAM Review of Systems Constitutional: No fever, No chills, No sweats Eyes: No worsening of vision ENT: No hearing loss, No nasal symptoms Respiratory: No cough, No sputum, No wheezing Cardiovascular: No chest pain, No orthopnea, No PND Abdomen: + pain (Abdominal wall pain at site of Baclofen pump), No nausea, No vomiting Musculoskeletal: + problem reported (Lower back pain as above) Genitourinary - Male: No hematuria, No dysuria Neurologic: No memory loss, No paralysis, No weakness Psychiatric: No depression symptoms Endocrine: No fatigue Hematologic / Lymphatic: No abnormal bleeding/bruising Integumentary: + problem reported (Inflammation at Baclofen pump site) Allergic / Immunologic: No environmental allergies Physical Exam Vital Signs Date Time Temp Pulse Resp B/P (MAP) Pulse Ox O2 Delivery O2 Flow Rate FiO2 07/15/17 00:20 94 07/14/17 23:15 36.8 97 18 128/76 98 Room Air General Appearance: WD/WN, no apparent distress Head: normocephalic Eyes: normal inspection ENT: normal ENT inspection, pharynx normal Neck: supple, no JVD Respiratory/Chest: chest non-tender, lungs clear, normal breath sounds Cardiovascular: regular rate, rhythm, no edema, no gallop Abdomen/GI: normal bowel sounds, + pertinent finding (Rounded area of inflammation at RLQ with open area - tender to palpation) Back: normal inspection, no CVA tenderness Extremities/Musculoskelatal: + pertinent finding (Inflammation extending from abdominal wound around to lower back - tender to palpation) 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, alert, normal mood/affect, oriented x 3, + pertinent finding (Chronic paraplegia as above) Skin: + pertinent finding (Inflammation of abdominal wall as above - abscess at surgical site) Diagnostics Laboratory Results Results Past 24 Hours Test 07/15/17 00:05 07/15/17 00:28 07/15/17 00:30 Range/Units White Blood Count 22.11 4.8-10.8 K/uL Red Blood Count 4.30 4.7-6.1 M/uL Hemoglobin 12.6 14.0-18.0 g/dL Hematocrit 38.8 42-52 % Mean Corpuscular Volume 90.2 80-100 fL Mean Corpuscular Hemoglobin 29.3 25-34 pg Mean Corpuscular Hemoglobin Concent 32.5 32-36 g/dl Platelet Count 177 130-400 K/uL Mean Platelet Volume 10.4 7.4-10.4 fL Neutrophils (%) (Auto) 87.3 % Lymphocytes (%) (Auto) 5.7 % Monocytes (%) (Auto) 6.5 % Eosinophils (%) (Auto) 0.0 % Basophils (%) (Auto) 0.1 % Neutrophils # (Auto) 19.30 1.4-6.5 K/uL Lymphocytes # (Auto) 1.26 1.2-3.4 K/uL Monocytes # (Auto) 1.44 0.11-0.59 K/uL Eosinophils # (Auto) 0.00 0-0.5 K/uL Basophils # (Auto) 0.03 0-0.2 K/uL RDW Standard Deviation 44.5 36.4-46.3 fL RDW Coefficient of Variation 13.6 11.5-14.5 % Immature Granulocyte % (Auto) 0.4 % Immature Granulocyte # (Auto) 0.08 0.00-0.02 K/uL Prothrombin Time 10.3 9.0-12.0 SECONDS Prothromb Time International Ratio 1.0 0.9-1.1 Activated Partial Thromboplast Time 31.7 21.0-31.0 SECONDS Partial Thromboplastin Ratio 1.2 Sodium Level 137 136-145 mmol/L Potassium Level 4.3 3.5-5.1 mmol/L Chloride Level 102 98-107 mmol/L Carbon Dioxide Level 26 21-32 mmol/L Anion Gap 10.0 3-11 mmol/L Blood Urea Nitrogen 27 7-18 mg/dl Creatinine 1.03 0.60-1.40 mg/dl Estimated GFR () 86.1 Estimated GFR (Non- 74.3 BUN/Creatinine Ratio 25.7 10-20 Random Glucose 113 70-99 mg/dl Calcium Level 9.2 8.5-10.1 mg/dl Total Bilirubin 0.7 0.2-1 mg/dl Aspartate Amino Transf (AST/SGOT) 41 15-37 U/L Alanine Aminotransferase (ALT/SGPT) 34 12-78 U/L Alkaline Phosphatase 85 45-117 U/L Total Protein 8.0 6.4-8.2 gm/dl Albumin 3.1 3.4-5.0 gm/dl Globulin 4.9 2.5-4.0 gm/dl Albumin/Globulin Ratio 0.6 0.9-2 Chemistry Specimen Hemolysis Bedside Lactic Acid Venous 1.53 0.90-1.70 mmol/L Urine Color YELLOW Urine Appearance CLEAR CLEAR Urine pH 5.0 4.5-7.5 Urine Specific [place] 1.025 1.000-1.030 Urine Protein 1+ NEG Urine Glucose (UA) NEG NEG Urine Ketones TRACE NEG Urine Occult Blood TRACE NEG Urine Nitrite NEG NEG Urine Bilirubin NEG NEG Urine Urobilinogen NEG NEG Urine Leukocyte Esterase TRACE NEG Urine WBC (Auto) 1-5 0-5 /hpf Urine RBC (Auto) 0-4 0-4 /hpf Urine Hyaline Casts (Auto) 1-5 0-5 /lpf Urine Epithelial Cells (Auto) 20-30 0-5 /lpf Urine Bacteria (Auto) NEG NEG Microbiology Results 07/15/17 Blood Culture, Received Pending 07/15/17 Blood Culture, Received Pending Diagnostic Radiology CT abdomen: 10.1 x 2.6 cm fluid collection in RLQ resembling abscess 3.6 x 1.8 cm fluid collection adjacent to tubing posterior to L1 spinous process - leak vs abscess Cholelithiasis Impression Assessment and Plan 67 y/o M Hx paraplegia following spinal cord injury, neurogenic bladder, depression, HTN, DVT, traumatic brain injury. Pt had a revision of a Baclofen pump which was the 4th such revision. He developed pain and swelling in the area. He could not confirm a fever. He denies additional acute symptoms. A large amount of pus was expressed from the wound by the ER attending. 1) Abscess at site of Baclofen pump placement and possibly posterior to L1 - Pt placed on Aztreonam, Dapto in ER which we can continue pending wound culture results. He will be evaluated by anesthesia and may need referral to ortho and/ or gen surg if extensive debridement is required. 2) HTN - cont Lisinopril 3) Spinal cord injury - cont Baclofen pending pump replacement - will likely need to transition to oral for a period - cont Oxycodone as needed Full code - SCDs pending surgery eval Total time for this admit including review of labs, meds, imaging, records - discussion with pt and ER attending - 35 min Level of Care Med/Surg Resuscitation Status FULL RESUSCITATION VTE Prophylaxis Given or contraindicated: SCD's
[2017-07-15] MEDS ORDERED: MAGNESIUM HYDROXIDE SUSP 30 ML UDC PO PRN (03:15)
[2017-07-15] MEDS ORDERED: POLYETHYLENE (MIRALAX) 17 GM PACK PO PRN ×2 (03:15→06:00)
[2017-07-15] MEDS ORDERED: ALUMINUM/MAGNESIUM/SIMETH (MAALOX MAX) 30 ML UDC PO PRN (03:15)
[2017-07-15] MEDS ORDERED: ONDANSETRON INJ 2 MG/ML 2 ML VIAL IV PRN ×2 (03:15→13:45)
[2017-07-15] MEDS ORDERED: PATIENT'S HEIGHT AND/OR WEIGHT NEEDED SCH (05:00)
[2017-07-15] MEDS: D5W AND NSS 1,000 ML IV SCH ×2 (05:07→15:15)
--- NOTE | 2017-07-15 07:33 | DIAGNOSTIC IMAGING REPORT ---
ABDOMEN AND PELVIS CT WITH IV CONTRAST CT DOSE: 888.79 mGy.cm HISTORY: eval for abscess around pump in RLQ TECHNIQUE: Multiaxial CT images of the abdomen and pelvis were performed following the use of intravenous contrast. A dose lowering technique was utilized adhering to the principles of ALARA. COMPARISON STUDY: None. FINDINGS: There is a right lower quadrant pain pump within the subcutaneous fat. There is a 10 x 2.7 cm ovoid fluid collection containing a small focus of gas and peripheral enhancement along the superior border of the palm. This is concerning for an abscess. There is also a peripheral enhancing fluid collection within the subcutaneous fat of the mid line of the lumbar region at the L2-L3 level which measures 4.3 x 2.3 cm. This partially surrounds the catheter. This could also represent an abscess or possibly contained catheter leak. There is an old partial catheter identified within the right subcutaneous fat. There is also a fracture catheter fragment within the central canal the lower thoracic region. The tip of second catheter terminates at the T9 level. Posterior spinal rods seen within the lower thoracic region. The lung bases are clear. Punctate calcified granulomas seen within the liver and spleen. The adrenal glands and pancreas are unremarkable. No hydronephrosis. A few subcentimeter hypodense lesions within the kidneys are too small to characterize but statistically represent cysts. There is an IVC filter present. No retroperitoneal lymphadenopathy. Cholelithiasis. Small hiatus hernia. The bladder is unremarkable. Colonic diverticulosis. No bowel wall thickening or obstruction. Normal appendix. IMPRESSION: 1. There is a 10.0 x 2.7 cm fluid collection along the superior border of the right lower quadrant pain pump likely representing an abscess. 2. There is a second fluid collection within the subcutaneous lumbar region surrounding the distal catheter measuring 4.3 x 2.3 cm. This could also represent an abscess or possibly contained catheter leak. 3. Cholelithiasis. 4. IVC filter. 5. No bowel wall thickening or obstruction. Electronically signed by: Vic Raymundo M.D. 07/15/2017 7:31 AM Dictated Date/Time: 07/15/2017 7:22 AM
--- NOTE | 2017-07-15 08:02 | DIAGNOSTIC IMAGING REPORT ---
CHEST ONE VIEW PORTABLE HISTORY: Sepsis COMPARISON: None. FINDINGS: Thoracic spinal rods are noted. Severe degenerative changes within the right shoulder. No pleural effusions. No pneumothorax. No focal lung consolidations to suggest pneumonia. No evidence for pulmonary edema. The heart is top normal in size. Right upper rib deformities are likely old. IMPRESSION: No acute process. Electronically signed by: Vic Raymundo M.D. 07/15/2017 8:01 AM Dictated Date/Time: 07/15/2017 8:00 AM
[2017-07-15] MEDS ORDERED: HYDROCODONE/ACETAMIN 5/325MG TAB PO SCH (09:00)
[2017-07-15] MEDS: ASPIRIN 81 MG ECTAB PO SCH (09:00)
[2017-07-15] MEDS: LISINOPRIL 20 MG TAB PO SCH (09:14)
[2017-07-15] MEDS: ACETAMINOPHEN 325 MG TAB PO PRN ×3 (09:14→21:07)
[2017-07-15] MEDS: ASCORBIC ACID 500 MG TAB PO SCH (09:14)
[2017-07-15] MEDS: DULOXETINE HCL 60 MG CAP PO SCH (09:14)
[2017-07-15] MEDS: CALCIUM 600MG + VIT D 400 IU TAB PO SCH (09:14)
[2017-07-15] MEDS ORDERED: NEOMYCIN/POLYMYX/BACITR OINT 15 GM TUBE ONE (09:49)
[2017-07-15] MEDS ORDERED: BUPIVACAINE/EPINEPHRINE 0.25% 1:200,000 30 ML VIAL ONE (09:49)
[2017-07-15] MEDS ORDERED: BACITRACIN 50000 UNIT VIAL ONE ×2 (09:50→11:24)
[2017-07-15] MEDS ORDERED: MIDAZOLAM HCL 1 MG/ML 2ML VIAL ONE (10:12)
[2017-07-15] MEDS ORDERED: FENTANYL CITRATE INJ 50 MCG/1 ML 2 ML VIAL ONE ×2 (10:12→12:03)
[2017-07-15] MEDS ORDERED: LIDOCAINE HCL 2% 2 ML VIAL (20MG/ML) ONE (10:12)
[2017-07-15] MEDS ORDERED: PROPOFOL IV EMULSION 10 MG/ML 20 ML VIAL IV ONE (10:12)
[2017-07-15] MEDS ORDERED: ROCURONIUM BROMIDE 10 MG/ML 5 ML VIAL IV ONE (11:03)
--- NOTE | 2017-07-15 11:19 | History & Physical Bridge Note ---
H&P Re-Evaluation Bridge Note: I have examined the patient, reviewed the History & Physical and in the interval since the performance of the History & Physical I have noted the following changes of clinical significance: No changes noted Chart reviewed, patient interviewed and examined. Patient's was present for the entire process. It appears that noted patient having purulent drainage over the pump site of the right lower quadrant abdomen. He also was febrile with febrile 103F with a last 24 hours at home. He was also complaining to his low back pain over the last 24-48 hours. She brought the patient emergency room where CT scan was performed which demonstrated fluid collection at the pump site and possibly fluid collection or CSF leak at the catheter site. He has elevated WBC. It appears that he has an abscess at the pump site and possibly the catheter site. It was recommended that the cath and the pump be removed and patient be placed on IV antibiotics. Patient his agree to the plan and give informed consent. Potential risks including worsening infection, repeat procedures, placement of wound VAC in both sites as well as in her treatment plan was discussed with them. Their questions were answered. Postoperatively, patient will undergo affect is his consultation as well as wound care consultation with wound with placement.
[2017-07-15] MEDS ORDERED: BACLOFEN 10 MG TAB PO PRN (11:30)
[2017-07-15] MEDS ORDERED: EpHEDrine SULFATE 50MG/5ML SYR ONE (12:29)
[2017-07-15] MEDS ORDERED: PHENYLEPHRINE 100MCG/ML 5ML SYR ONE (12:30)
[2017-07-15] MEDS ORDERED: PHENYLEPHRINE HCL INJ 10 MG/ML VIAL ONE (12:30)
[2017-07-15] MEDS ORDERED: NEOSTIGMINE METHYLSULFATE 5 MG/5 ML SYR ONE (13:15)
[2017-07-15] MEDS ORDERED: GLYCOPYRROLATE INJ 0.2 MG/ML VIAL ONE (13:15)
--- NOTE | 2017-07-15 13:25 | [facility] Operative Report ---
Operative Report Operative Date Jul 15, 2017. Pre-Operative Diagnosis Infected pump RLQ abdomen Post-Operative Diagnosis Same. CSF collection lumbar spien wund site of intrathecal catheter Procedure(s) Performed Explantiaon of intrathecal catheter and pump Surgeon Dariel Acetylene Operator Surgeon(s) None Estimated Blood Loss 5 Findings Infected pump site RLQ No evidence of infection intrathecal catheter site Specimens Micro #1: Back Wound-culture and sensitivity, anaerobic, aerobic, gram stain A: Explanted hardware-intrathecal catherter tip Drains None Anesthesia GA/ETT Complication(s) None Disposition Surgical ICU Description of Procedure INTRATHECAL PUMP EXPLANTATION PROCEDURE PERFORMED: Intrathecal pump and catheter explantation. PREOPERATIVE DIAGNOSIS: 1. Infected intrathecal pump . 2. CSF fluid collection lumbar spine at catheter insertion site. POSTOPERATIVE DIAGNOSIS: Same COMPLICATIONS: None. SURGEON: Dr. Kings Vieira. ANESTHESIA: General/endotracheal. MATERIAL FORWARDED TO THE LAB: Explanted pump. EBL: 5 ml INDICATIONS: Right lower quadrant abdominal pump site wound infection and fluid collection noted on CT scan at the catheter insertion site in the lumbar spine on CT scan preoperatively. The patient was explained the risks, benefits, alternatives of the procedure and agreed to proceed as above. Informed consent was obtained and witnessed. A time out was performed after the patient was brought into the Operating Room. Antibiotics were given per hospitalist service on the floor as scheduled dosage. The patient was then induced with general anesthesia without complications and was placed in the left lateral decubitus position. The skin was prepped with DuraPrep and Betadine and draped in sterile fashion. The catheter insertion site into the CSF canal was identified under fluoroscopy and incision was made down to the ankle. Clear fluid was noted to be draining without obvious purulence. Gram stain and cultures were taken. [place] in all the existing sutures were removed. Remaining V lock sutures from the skin and subcutaneous tissues were removed. An anchor and piece of catheter from previous catheter system was also removed. Catheter was cut and removed. Catheter tip was sent for culture. Wound was irrigated with 5 L of bacitracin-containing saline with Pulsavac. The wound was then packed with 1 inch iodoform gauze. Sterile dressings were applied. Tegaderm was applied. Next, patient was reprepped and redraped in supine position. The existing pump was identified and using a scalpel, electro cautery, and blunt dissection, the existing pump was exposed. A copious amount of purulent material was noted to be in the pump pocket and was suction removed. Gram stain and culture taken. The four retaining sutures were removed and the old pump was explanted. Wound was copiously irrigated with Pulsavac. Wound was packed with 2 inch iodoform gauze. No complications were noted throughout the procedure. The patient was allowed to emerge from general anesthesia and transported to the recovery room in stable condition uneventfully. I attest to the content of the Intraoperative Record and any orders documented therein. Any exceptions are noted below.
[2017-07-15] MEDS ORDERED: HYDROmorphone INJ 1 MG/ML SYR IV PRN (13:45)
[2017-07-15] MEDS ORDERED: EpHEDrine SULFATE INJ 50 MG/ML AMP IV PRN (13:45)
[2017-07-15] MEDS ORDERED: ATROPINE SULFATE 0.1 MG/ML 5ML SYR IV PRN (13:45)
[2017-07-15] MEDS ORDERED: PROMETHAZINE HCL INJ 12.5 MG in SODIUM CHLORIDE 0.9% 50ML 50 ML IV PRN (13:45)
[2017-07-15] MEDS ORDERED: FLUMAZENIL 0.1 MG/1 ML 10 ML VIAL IV PRN (13:45)
[2017-07-15] MEDS ORDERED: HYDROmorphone INJ 0.5 MG/0.5 ML SYR IM PRN (13:45)
[2017-07-15] MEDS ORDERED: NALOXONE HCL 0.4 MG/1 ML VIAL/CARP IV PRN (13:45)
[2017-07-15] MEDS: HYDROCODONE/ACETAMIN 5/325MG TAB PO SCH ×2 (13:46→21:00)
[2017-07-15] MEDS: AZTREONAM IV 2,000 MG in DEXTROSE 5% 100ML 100 ML IV SCH ×2 (13:46→18:11)
--- NOTE | 2017-07-15 14:24 | Anesthesiology Progress Note ---
Anesthesia Post Op Note Date & Time Jul 15, 2017 at 14:24 Vital Signs Pain Intensity: 0 Vital Signs Past 12 Hours Date Time Temp Pulse Resp B/P (MAP) Pulse Ox O2 Delivery O2 Flow Rate FiO2 07/15/17 14:00 36.9 92 16 93/53 (71) 96 Nasal Cannula 2 07/15/17 13:45 89 20 92/57 (64) 97 Nasal Cannula 3 07/15/17 13:35 87 16 102/64 99 Oxymask 6 07/15/17 13:25 86 26 110/70 99 Oxymask 10 07/15/17 13:19 37.2 90 22 104/73 99 Oxymask 10 07/15/17 08:28 Room Air 07/15/17 07:16 38.8 113 20 111/63 (79) 96 Room Air 07/15/17 05:52 37.4 65 18 153/74 Room Air 99 07/15/17 04:16 97 20 132/73 95 07/15/17 02:58 97 18 104/52 91 Room Air 07/15/17 02:32 37.4 Notes Mental Status: alert / awake / arousable, participated in evaluation Pt Amnestic to Procedure: Yes Nausea / Vomiting: adequately controlled Pain: adequately controlled Airway Patency, RR, SpO2: stable & adequate BP & HR: stable & adequate Hydration State: stable & adequate Anesthetic Complications: no major complications apparent
--- NOTE | 2017-07-15 14:35 | Progress Note ---
Progress Note Date of Service Jul 15, 2017. Progress Note ID Consult Dictated #[id number] A/P: 1. GPC Septicemia 2. Infected pump with abscess, s/p extraction 3. Leukocytosis 4. Fever -Continue abx for now, -Await ID gpc -Follow OR cultures -Repeat blood cultures x 2 -Will follow, thank you
--- NOTE | 2017-07-15 15:06 | INFECT. DISEASE CONSULTATION ---
DATE OF CONSULTATION: 07/15/2017 HISTORY OF PRESENT ILLNESS: This is a 67-year-old gentleman who has a baclofen pump, which has been revised many times in the past. He recently underwent a revision and yesterday developed fever as high as 103 degrees at home. His brought him to the hospital. Overnight in the Emergency Room, it was noted that there was pus coming from the abdominal pump site. He did undergo a CAT scan of the abdomen and pelvis and this showed a 2 x 3 cm collection in the abdominal wall and also a distal catheter collection, measuring 4.3 x 2.3 cm. He was started on daptomycin and aztreonam. He was also found to have a white blood cell count of 22.1. He was followed by pain management and decision was made to take the patient to the operating room for pump removal as well as catheter removal. This was done earlier this afternoon. I am seeing the patient postoperatively. He currently is in no pain. He currently denies any fevers or chills, but did have a fever of 38.8 earlier today. His wound culture from the ER of the purulent drainage expressed from the abdominal site has few gram positive cocci. Blood cultures were also obtained in the ER last night and now are growing gram positive cocci in both sets. Repeat blood cultures have been ordered. He is tolerating antibiotics well. Again, he denies any pain at this time. He is eating lunch. On my examination, he denies any fevers or chills currently. His remaining review of systems is unremarkable. PAST MEDICAL HISTORY: Significant for spinal cord injury with paraplegia, hypertension, neurogenic bladder with self-catheterization, traumatic brain injury tib-fib fracture, DVT and depression. PAST SURGICAL HISTORY: Significant for spinal fusion, IVC filter, and baclofen pump with multiple revisions in the past. FAMILY HISTORY: Noncontributory. SOCIAL HISTORY: Negative for tobacco use, alcohol use and drug use. ALLERGIES: HE HAS PENICILLIN, HALDOL AND BACTRIM ALLERGIES. CURRENT MEDICATIONS: Include daptomycin, Aricept, baclofen, Percocet, Dilaudid, Narcan, Romazicon, Zofran, atropine, Percocet, aztreonam, vitamin C, Ecotrin, Caltrate, Cymbalta, lisinopril, MiraLax, Tylenol, Maalox, and milk of magnesia. PHYSICAL EXAMINATION: VITAL SIGNS: He is currently afebrile, pulse is 92, respiratory rate 16, blood pressure 93/53 and oxygen saturation is 96% on 2 liters. GENERAL: He is awake, alert and oriented x3. He is in no acute distress. HEENT: Mucous membranes are moist. Extraocular muscles are intact. HEART: Regular. LUNGS: Clear. ABDOMEN: Soft and nondistended. EXTREMITIES: There is no edema. SKIN: Without rash. LABORATORY STUDIES: CBC reveals a white blood cell count of 22.1, hemoglobin 12.6, and platelets are 177. Chemistry panel reveals a sodium of 137, potassium 4.3, chloride 102, bicarbonate 26, BUN 27, creatinine 1.0, and glucose 113. LFTs are within normal limits. Lactic acid was 1.5. UA is unremarkable. Wound culture from the ER is pending, but there are few gram positive cocci on Gram stain. Blood cultures drawn in the Emergency Room overnight are growing gram positive cocci in 2/2 sets OR cultures and repeat blood cultures are pending. IMAGING: As above. ASSESSMENT AND PLAN: Infected baclofen pump with gram positive septicemia. He will remain on empiric antibiotics; however, his aztreonam can be discontinued tomorrow. We will await the idea of the gram positive cocci and results of repeat blood cultures. Thank you for this consultation.
[2017-07-15] MEDS: BACLOFEN 10 MG TAB PO SCH ×2 (15:15→21:08)
[2017-07-15] MEDS: DONEPEZIL HCL 10 MG TAB PO SCH (21:08)
[2017-07-15 21:57] LABS: INFLUENZA B ANTIGEN Neg for Influ B (NEG)
[2017-07-15] MEDS ORDERED: GADAVIST IV PRN (22:40)
[2017-07-15] MEDS ORDERED: SODIUM CHLORIDE 0.9% 500ML 500 ML IV ONE (23:30)
[2017-07-16] VITALS (11 sets, daily range): BP systolic 84–114; BP diastolic 51–62; PULSE 73–96; TEMP 36.7–39.3; O2SAT 91–99
[2017-07-16] MEDS: SODIUM CHLORIDE 0.9% 1000ML 1,000 ML IV SCH ×2 (00:34→12:15)
[2017-07-16] MEDS: AZTREONAM IV 2,000 MG in DEXTROSE 5% 100ML 100 ML IV SCH (02:06)
[2017-07-16] MEDS: DAPTOmycin IV 500 MG in SYRINGE 0 ML IV SCH (02:06)
--- NOTE | 2017-07-16 07:52 | History and Physical ---
History & Physical Date of Service Jul 15, 2017. History & Physical Patient was seen after the procedure. Patient reports significant improve after baclofen implant was removed. Patient is resting comfortably. Has no complaints today.
[2017-07-16] MEDS: ACETAMINOPHEN 325 MG TAB PO PRN (07:58)
--- NOTE | 2017-07-16 08:25 | Anesthesiology Progress Note ---
Anesthesia Post Op Note Date & Time Jul 16, 2017 at 08:24 Vital Signs Pain Intensity: 0.0 Vital Signs Past 12 Hours Date Time Temp Pulse Resp B/P (MAP) Pulse Ox O2 Delivery O2 Flow Rate FiO2 07/16/17 08:14 92 Nasal Cannula 1.0 07/16/17 08:06 39.3 92 24 114/62 (79) 92 Nasal Cannula 1.0 07/16/17 04:05 38.1 07/16/17 03:55 39.1 96 18 91/51 (64) 91 Room Air 07/16/17 00:50 Room Air 07/15/17 23:20 36.8 97 18 91/46 (61) 91 Room Air 07/15/17 20:26 39.3 106 20 126/75 (92) 90 Room Air Notes Mental Status: alert / awake / arousable, participated in evaluation Pt Amnestic to Procedure: Yes Nausea / Vomiting: adequately controlled Pain: adequately controlled Airway Patency, RR, SpO2: stable & adequate BP & HR: stable & adequate Hydration State: stable & adequate Anesthetic Complications: no major complications apparent
--- NOTE | 2017-07-16 08:25 | DIAGNOSTIC IMAGING REPORT ---
MRI OF THE THORACIC SPINE WITH AND WITHOUT CONTRAST CLINICAL HISTORY: Epidural/intrathecal abscess. COMPARISON STUDY: No previous studies for comparison. TECHNIQUE: Utilizing a 1.5 Georgina magnet and dedicated coil, multiplanar, multi echo imaging of the thoracic spine was performed pre and postcontrast administration. Injection of 9.5 cc of Gadavist IV was uneventful. The patient was unable to complete the lumbar spine MRI and will return to complete the lumbar spine MRI. FINDINGS: Note is made of an old T8 fracture and a T6-T12 posterior fusion with hardware. This hardware results in susceptibility artifact which compromises visualization of the thoracic canal. However, no thoracic intracanalicular fluid collection is identified to suggest an epidural abscess. There is no evidence for discitis within the thoracic spine. The thoracic spine central canal appears patent although is difficult to assess at the T6 and T12 levels due to the hardware artifact. Paravertebral soft tissues are unremarkable. Specifically, there is no paravertebral abscess within the thoracic region. No definite thoracic cord signal abnormality identified although the cord is suboptimally assessed on this exam. These mid to lower thoracic cord may be somewhat diminutive. The lumbar spine was only partially imaged on this exam and the patient will return for completion of this examination. A 4.7 x 2.6 cm T2 hypointense subcutaneous focus within the lower back at the L1-L2 level represents the catheter insertion site status post removal. The lumbar spine is suboptimally assessed given single sagittal T2 sequence. Moderate multilevel degenerative changes are present. There is possible anterior displacement of the nerve roots with equivocal posterior intracanalicular fluid collection at the L1-L2 levels. This is probably artifactual. IMPRESSION: 1. No thoracic epidural abscess. No acute abnormality within the thoracic spine by MRI. Evaluation compromised given fusion hardware but no significant abnormality identified. 2 The patient will return for completion of the lumbar spine MRI. Single sagittal sequence of the lumbar spine demonstrates an equivocal posterior intracanalicular fluid collection which is likely artifactual however should be assessed on the completion MRI to exclude an intracanalicular fluid collection. 3. 4.7 x 2.6 cm T2 hypointense subcutaneous abnormality of the lower back which represents catheter removal site. Electronically signed by: Wilman Plata M.D. 07/16/2017 8:24 AM Dictated Date/Time: 07/16/2017 6:45 AM
[2017-07-16] MEDS ORDERED: CRANBERRY PO SCH (09:00)
[2017-07-16] MEDS: BACLOFEN 10 MG TAB PO SCH ×3 (09:06→21:41)
[2017-07-16] MEDS: ASCORBIC ACID 500 MG TAB PO SCH (09:07)
[2017-07-16] MEDS: ASPIRIN 81 MG ECTAB PO SCH (09:07)
[2017-07-16] MEDS: CALCIUM 600MG + VIT D 400 IU TAB PO SCH (09:07)
[2017-07-16] MEDS: DULOXETINE HCL 60 MG CAP PO SCH (09:07)
[2017-07-16] MEDS: LISINOPRIL 20 MG TAB PO SCH (09:07)
[2017-07-16] MEDS: HYDROCODONE/ACETAMIN 5/325MG TAB PO SCH ×2 (09:09→21:41)
[2017-07-16 09:16] LABS: ALBUMIN 2.1 gm/dl (3.4-5.0); CALCIUM 7.9 mg/dl (8.5-10.1); CREATININE 0.98 mg/dl (0.60-1.40); POTASSIUM 3.4 mmol/L (3.5-5.1); TOTAL PROTEIN 6.1 gm/dl (6.4-8.2)
[2017-07-16 09:42] LABS: HEMATOCRIT 30.4 % (42-52); HEMOGLOBIN 9.9 g/dL (14.0-18.0); MEAN CELL VOLUME 89.4 fL (80-100); MEAN CORPUSCULAR HEMOGLOBIN 29.1 pg (25-34); MEAN CORPUSCULAR HGB CONC 32.6 g/dl (32-36); MEAN PLATELET VOLUME 10.4 fL (7.4-10.4); PLATELET COUNT 131 K/uL (130-400); RED CELL DISTRIBUTION WIDTH CV 13.5 % (11.5-14.5); RED CELL DISTRIBUTION WIDTH SD 44.5 fL (36.4-46.3); WHITE BLOOD COUNT 11.66 K/uL (4.8-10.8)
[2017-07-16 10:15] LABS: BASO % 0.2 %; BASO ABS # 0.02 K/uL (0-0.2); IG# 0.05 K/uL (0.00-0.02); LYMPH % 3.9 %; LYMPH ABS # 0.45 K/uL (1.2-3.4); MONO % 8.5 %; MONO ABS # 0.99 K/uL (0.11-0.59); NEUT ABS # 10.15 K/uL (1.4-6.5)
--- NOTE | 2017-07-16 11:01 | Progress Note ---
Subjective Date of Service: Jul 16, 2017. Subjective Pt evaluation today including: conversation w/ patient, physical exam, chart review, lab review pt seen in followup, All cultures to date growing S. aureus, including wound ( abd and back) as well as blood cultures 07/15 at 12am and 3:30pm. Remains on dapto, aztreonam stopped. persistent fever overnight, although pt denies f/c. no sweats. no pain at pump site, dressing not changed post op yet. no drainage or bleeding. Denies pain. states he is feeling well. wbc improved to 11 from 22 on admission. all remaining ros reviewed and are negative Problem List Medical Problems: (1) Infection of intrathecal pump Status: Acute Objective Vital Signs Date Time Temp Pulse Resp B/P (MAP) Pulse Ox O2 Delivery O2 Flow Rate FiO2 07/16/17 08:14 92 Nasal Cannula 1.0 07/16/17 08:06 39.3 92 24 114/62 (79) 92 Nasal Cannula 1.0 07/16/17 07:45 92 Nasal Cannula 2.0 Humidified Oxygen 07/16/17 04:05 38.1 07/16/17 03:55 39.1 96 18 91/51 (64) 91 Room Air 07/16/17 00:50 Room Air 07/15/17 23:20 36.8 97 18 91/46 (61) 91 Room Air 07/15/17 20:26 39.3 106 20 126/75 (92) 90 Room Air 07/15/17 17:27 37.8 07/15/17 17:10 38.7 92 20 120/48 (72) 92 Room Air 07/15/17 16:25 36.7 85 16 115/75 (88) 97 Room Air 07/15/17 15:55 Nasal Cannula 2.0 07/15/17 15:15 36.5 85 16 117/70 (86) 100 Nasal Cannula 3.0 07/15/17 14:50 92 18 119/56 (77) 99 07/15/17 14:15 99 Nasal Cannula 2.0 07/15/17 14:15 36.7 92 18 104/57 (73) 99 Nasal Cannula 2.0 07/15/17 14:00 36.9 92 16 93/53 (71) 96 Nasal Cannula 2 07/15/17 13:45 89 20 92/57 (64) 97 Nasal Cannula 3 07/15/17 13:35 87 16 102/64 99 Oxymask 6 07/15/17 13:25 86 26 110/70 99 Oxymask 10 07/15/17 13:19 37.2 90 22 104/73 99 Oxymask 10 Physical Exam General Appearance: WD/WN, no apparent distress Eyes: normal inspection, EOMI Neck: supple Respiratory/Chest: lungs clear, normal breath sounds, no respiratory distress Cardiovascular: regular rate, rhythm, no edema Abdomen: soft Extremities: non-tender, no pedal edema Neurologic/Psychiatric: alert, oriented x 3 Skin: normal color Comments: abd dressing c/d/i, no bleeding or drainage, no surrounding warmth or erythema. Laboratory Results Item Value Date Time Blood Culture - Preliminary Resulted 07/15/17 0005 Blood Gram Positive Cocci Blood Culture - Preliminary Resulted 07/15/17 0020 Blood Gram Positive Cocci Blood Culture - Preliminary Resulted 07/15/17 1526 Blood Gram Positive Cocci Gram Stain - Final Resulted 07/15/17 1253 Drainage-Deep Abdomen Gram Stain - Final Resulted 07/15/17 1213 Drainage-Deep Back Blood Culture - Preliminary Resulted 07/15/17 0020 Blood Staphylococcus Aureus Blood Culture - Preliminary Resulted 07/15/17 0005 Blood Staphylococcus Aureus Gram Stain - Final Resulted 07/14/17 0000 Incision Site Abdomin, Right Lower Quadrant Last 24 Hours Test 07/15/17 21:10 07/16/17 08:23 Influenza Type A Antigen Neg for Influ A Influenza Type B Antigen Neg for Influ B White Blood Count 11.66 K/uL Red Blood Count 3.40 M/uL Hemoglobin 9.9 g/dL Hematocrit 30.4 % Mean Corpuscular Volume 89.4 fL Mean Corpuscular Hemoglobin 29.1 pg Mean Corpuscular Hemoglobin Concent 32.6 g/dl Platelet Count 131 K/uL Mean Platelet Volume 10.4 fL Neutrophils (%) (Auto) 87.0 % Lymphocytes (%) (Auto) 3.9 % Monocytes (%) (Auto) 8.5 % Eosinophils (%) (Auto) 0.0 % Basophils (%) (Auto) 0.2 % Neutrophils # (Auto) 10.15 K/uL Lymphocytes # (Auto) 0.45 K/uL Monocytes # (Auto) 0.99 K/uL Eosinophils # (Auto) 0.00 K/uL Basophils # (Auto) 0.02 K/uL RDW Standard Deviation 44.5 fL RDW Coefficient of Variation 13.5 % Immature Granulocyte % (Auto) 0.4 % Immature Granulocyte # (Auto) 0.05 K/uL Sodium Level 140 mmol/L Potassium Level 3.4 mmol/L Chloride Level 108 mmol/L Carbon Dioxide Level 23 mmol/L Anion Gap 10.0 mmol/L Blood Urea Nitrogen 24 mg/dl Creatinine 0.98 mg/dl Est Creatinine Clear Calc Drug Dose 84.9 ml/min Estimated GFR () 91.4 Estimated GFR (Non- 78.9 BUN/Creatinine Ratio 24.2 Random Glucose 102 mg/dl Calcium Level 7.9 mg/dl Total Bilirubin 0.4 mg/dl Direct Bilirubin 0.1 mg/dl Aspartate Amino Transf (AST/SGOT) 34 U/L Alanine Aminotransferase (ALT/SGPT) 32 U/L Alkaline Phosphatase 61 U/L Total Protein 6.1 gm/dl Albumin 2.1 gm/dl Assessment and Plan (1) Staphylococcus aureus septicemia Assessment & Plan: will continue dapto pending final cultures. repeat blood cultures ordered, pending. will need echo to r/o veg. will follow. (2) Infection of intrathecal pump Problem Qualifiers (1) Infection of intrathecal pump: Encounter type: initial encounter Qualified Codes: T85.738A - Infection and inflammatory reaction due to other nervous system device, implant or graft, initial encounter
--- NOTE | 2017-07-16 13:29 | Wound Consultation: Inpatient ---
Wound Consultation Date of Consultation: Jul 16, 2017. Attending Physician: Dion Langston M.D. Reason for Consultation: Postoperative nonhealing abdominal wound History of Present Illness Patient seen today for follow-up after removal of a baclofen pump yesterday. Dr. Simmons. The site was infected. Patient currently denies any significant abdominal pain nausea or vomiting. Patient denies any fever chills or night sweats. Patient denies any chest pain or shortness of breath. Patient denies any other systemic complaints. Family History Patient reports no known family medical history. Social History Smoking Status: Unknown if Ever Smoked Marital Status: Occupation Status: disabled Allergies Coded Allergies: Penicillins (Verified Allergy, Unknown, UNKNOWN, 07/14/17) Sulfamethoxazole w/Trimethoprim (Verified Allergy, Unknown, PENIS RED, INFECTION, 07/14/17) Haloperidol (Unverified Adverse Reaction, Intermediate, Confusion,agitated ,hallucinations, 07/14/17) Home Medications Scheduled Ascorbic Acid (Vitamin C), 1 TAB PO QAM Aspirin (Aspirin Chewable), 81 MG PO QAM Calcium/Vitamin D (Os-Jimmie 500 Plus D), 1 TAB PO QAM Cranberry (Vaccinium Macrocarp (Cranberry Extract), 2 CAP PO QAM Donepezil Hydrochloride (Aricept), 10 MG PO HS Duloxetine Hcl (Cymbalta), 60 MG PO QAM Hydrocodone/Acetaminophen 5MG/325MG ([place] 5MG/325MG), 0.5 TAB PO BID Lisinopril (Zestril), 20 MG PO QAM Memantine Hcl (Namenda Xr), 1 CAP PO QPM Vitamin E (Cvs Vitamin E), 400 MG PO QAM Inpatient Medications Current Inpatient Medications Medications (Trade) Dose Ordered Sig/Narinder Route Start Time Stop Time Status Last Admin Dose Admin Ioversol (Optiray 320) 111 ml UD PRN IV 07/15/17 00:00 07/19/17 00:00 Ascorbic Acid (Vitamin C Tab) 500 mg QAM PO 07/15/17 09:00 08/14/17 08:59 07/16/17 09:07 500 MG Aspirin (Ecotrin Tab) 81 mg QAM PO 07/15/17 09:00 08/14/17 08:59 07/16/17 09:07 81 MG Calcium/Vitamin D (Caltrate Plus Tab) 1 tab QAM PO 07/15/17 09:00 08/14/17 08:59 07/16/17 09:07 1 TAB Donepezil HCl (Aricept Tab) 10 mg HS PO 07/15/17 21:00 08/14/17 20:59 07/15/17 21:08 10 MG Duloxetine HCl (Cymbalta Cap) 60 mg QAM PO 07/15/17 09:00 08/14/17 08:59 07/16/17 09:07 60 MG Lisinopril (Zestril Tab) 20 mg QAM PO 07/15/17 09:00 08/14/17 08:59 07/16/17 09:07 20 MG Miscellaneous Information (Order Awaiting Action) 1 ea QS N/A 07/15/17 08:00 08/14/17 07:59 Acetaminophen (Tylenol Tab) 650 mg Q4H PRN PO 07/15/17 03:15 08/14/17 03:14 07/16/17 07:58 650 MG Al Hydrox/Mg Hydrox/Simethicone (Maalox Max Susp) 15 ml Q4H PRN PO 07/15/17 03:15 08/14/17 03:14 Magnesium Hydroxide (Milk Of Magnesia Susp) 30 ml Q6H PRN PO 07/15/17 03:15 08/14/17 03:14 Ondansetron HCl (Zofran Inj) 4 mg Q6H PRN IV 07/15/17 03:15 08/14/17 03:14 Daptomycin 500 mg/ Syringe 10 ml @ 5 mls/min Q24H IV 07/16/17 02:00 07/26/17 01:59 07/16/17 02:06 5 MLS/MIN Polyethylene (Miralax Powder Packet) 17 gm DAILY PRN PO 07/15/17 06:00 08/14/17 05:59 Acetaminophen/ Hydrocodone Bitart ([place] 5/325 Tab) 1 tab BID PO 07/15/17 12:00 07/29/17 08:59 07/16/17 09:09 1 TAB Baclofen (Lioresal Tab) 10 mg TID PO 07/15/17 14:00 08/14/17 13:59 07/16/17 09:06 10 MG Baclofen (Lioresal Tab) 10 mg TID PRN PO 07/15/17 11:30 08/14/17 11:29 Acetaminophen/ Hydrocodone Bitart ([place] 5/325 Tab) 1 tab Q4H PRN PO 07/15/17 13:45 07/29/17 13:44 Hydromorphone HCl (Dilaudid Inj) 0.5 mg Q2H PRN IM 07/15/17 13:45 07/29/17 13:44 Sodium Chloride 1,000 ml @ 75 mls/hr [id number] IV 07/15/17 23:00 07/17/17 01:39 07/16/17 12:15 75 MLS/HR Gadobutrol (Gadavist) 9.5 mmol UD PRN IV 07/15/17 22:40 07/19/17 22:39 Physical Exam Date Time Temp Pulse Resp B/P (MAP) Pulse Ox O2 Delivery O2 Flow Rate FiO2 07/16/17 08:14 92 Nasal Cannula 1.0 07/16/17 08:06 39.3 92 24 114/62 (79) 92 Nasal Cannula 1.0 07/16/17 07:45 92 Nasal Cannula 2.0 Humidified Oxygen 07/16/17 04:05 38.1 07/16/17 03:55 39.1 96 18 91/51 (64) 91 Room Air 07/16/17 00:50 Room Air 07/15/17 23:20 36.8 97 18 91/46 (61) 91 Room Air 07/15/17 20:26 39.3 106 20 126/75 (92) 90 Room Air 07/15/17 17:27 37.8 07/15/17 17:10 38.7 92 20 120/48 (72) 92 Room Air 07/15/17 16:25 36.7 85 16 115/75 (88) 97 Room Air 07/15/17 15:55 Nasal Cannula 2.0 07/15/17 15:15 36.5 85 16 117/70 (86) 100 Nasal Cannula 3.0 07/15/17 14:50 92 18 119/56 (77) 99 07/15/17 14:15 99 Nasal Cannula 2.0 07/15/17 14:15 36.7 92 18 104/57 (73) 99 Nasal Cannula 2.0 07/15/17 14:00 36.9 92 16 93/53 (71) 96 Nasal Cannula 2 07/15/17 13:45 89 20 92/57 (64) 97 Nasal Cannula 3 07/15/17 13:35 87 16 102/64 99 Oxymask 6 General: The patient is lying in a hospital bed in no distress. Alert, cooperative and appropriate to all questions. HEENT: Pupils equal and reactive to light. Sclera clear, EOM intact. Neck: Supple, No JVD noted Chest: CTA in all moreno. No deformity Heart: RRR without murmurs, S3, S4, thrills, rubs or heaves Abdomen: Soft, no pain to palpation. A postoperative wound site today demonstrates the presence of iodoform packing. Once removed the site measures 2.6 x 10.5 x 3 cm with undermining of 9.2 cm along the inferior border of the incision. There is no [place] sl[place] or active drainage. No odor noted. No periwound erythema tenderness or fluctuance noted. Neurological: Alert and oriented x3. No focal deficits. Skin: No rashes, papules, vesicles, excoriations Laboratory Results Last 24 Hours Test 07/15/17 21:10 07/16/17 08:23 Influenza Type A Antigen Neg for Influ A Influenza Type B Antigen Neg for Influ B White Blood Count 11.66 K/uL Red Blood Count 3.40 M/uL Hemoglobin 9.9 g/dL Hematocrit 30.4 % Mean Corpuscular Volume 89.4 fL Mean Corpuscular Hemoglobin 29.1 pg Mean Corpuscular Hemoglobin Concent 32.6 g/dl Platelet Count 131 K/uL Mean Platelet Volume 10.4 fL Neutrophils (%) (Auto) 87.0 % Lymphocytes (%) (Auto) 3.9 % Monocytes (%) (Auto) 8.5 % Eosinophils (%) (Auto) 0.0 % Basophils (%) (Auto) 0.2 % Neutrophils # (Auto) 10.15 K/uL Lymphocytes # (Auto) 0.45 K/uL Monocytes # (Auto) 0.99 K/uL Eosinophils # (Auto) 0.00 K/uL Basophils # (Auto) 0.02 K/uL RDW Standard Deviation 44.5 fL RDW Coefficient of Variation 13.5 % Immature Granulocyte % (Auto) 0.4 % Immature Granulocyte # (Auto) 0.05 K/uL Sodium Level 140 mmol/L Potassium Level 3.4 mmol/L Chloride Level 108 mmol/L Carbon Dioxide Level 23 mmol/L Anion Gap 10.0 mmol/L Blood Urea Nitrogen 24 mg/dl Creatinine 0.98 mg/dl Est Creatinine Clear Calc Drug Dose 84.9 ml/min Estimated GFR () 91.4 Estimated GFR (Non- 78.9 BUN/Creatinine Ratio 24.2 Random Glucose 102 mg/dl Calcium Level 7.9 mg/dl Total Bilirubin 0.4 mg/dl Direct Bilirubin 0.1 mg/dl Aspartate Amino Transf (AST/SGOT) 34 U/L Alanine Aminotransferase (ALT/SGPT) 32 U/L Alkaline Phosphatase 61 U/L Total Protein 6.1 gm/dl Albumin 2.1 gm/dl Assessment & Plan Assessment: Nonhealing postoperative wound abdominal wall Plan: No debridement is indicated. Packing was removed. The site will be managed with a wound VAC black foam 125 mm of negative pressure. The wound VAC will be changed again on Friday at which time bolstering will occur to help to improve the undermining in the inferior border of the incision site. It is recommended the patient be hospitalized until the VAC change on Friday after which the patient can continue treatment in the outpatient setting.
[2017-07-16] MEDS ORDERED: PERFLUTREN LIPID MICROSPHERE (DEFINITY) IV ONE (13:54)
--- NOTE | 2017-07-16 14:17 | Pain Management Progress Note ---
Pain Management Progress Note Date of Service Jul 16, 2017. Subjective Reports no complaints today. Remains febrile. Denies nausea or experiencing pain and spasms. Evaluated by ID and wound care. Objective Vital Signs: Last Vital Signs Documentation Date Time Temp Pulse Resp B/P (MAP) Pulse Ox O2 Delivery O2 Flow Rate FiO2 07/16/17 12:00 36.7 99 Nasal Cannula 2.0 07/16/17 08:06 92 24 114/62 (79) 07/15/17 05:52 99 Physical Exam: Awake and alert. Oriented to time, place and person. Appears comfortable without spasms. Wound dressings intact. Laboratory Laboratory Findings 07/16/17 08:23 Red Blood Count 3.40 L, Mean Corpuscular Volume 89.4, Mean Corpuscular Hemoglobin 29.1, Mean Corpuscular Hemoglobin Concent 32.6, Mean Platelet Volume 10.4, Neutrophils (%) (Auto) 87.0, Lymphocytes (%) (Auto) 3.9, Monocytes (%) ( Auto) 8.5, Eosinophils (%) (Auto) 0.0, Basophils (%) (Auto) 0.2, Neutrophils # ( Auto) 10.15 H, Lymphocytes # (Auto) 0.45 L, Monocytes # (Auto) 0.99 H, Eosinophils # (Auto) 0.00, Basophils # (Auto) 0.02 Imaging Other Findings WBC 11K. C&S reports reviewed. Abx coverage reviewed. Assessment 1. S/P intrathecal pump and catheter explantation due to abdominal wound infection. 2. Spinal cord injury with spasticity and neuropathic pain. Recommendations 1. Continue wound care and antibiotic therapy per consultants. 2. Continue baclofen as scheduled dose for spasticity.
--- NOTE | 2017-07-16 14:29 | Pain Management Consultation ---
Pain Management Consultation Date of Consultation Jul 16, 2017. Reason for Consultation Pump pocket site infection Patient was seen yesterday in preop area prior to pump explantation. Pain Location 1 - RLQ pump pocket site History Mr. Galileo Cevallos is a 67-year-old male with a history of spinal cord injury in the remote past who has been experiencing spasticity as a result of it. He has had an intrathecal baclofen infusion 200 system implanted previously with good efficacy. He has undergone 2 previous pump replacements due to depleted battery and was seen at [facility] several months ago for refill of his intrathecal pump as his provider discontinued his practice. During the initial evaluation, it was noted that he had a fractured catheter and he was on high dose of baclofen with minimal efficacy. He was therefore recommended to have the catheter replaced. Sometime in early May, he underwent replacement of the intrathecal pump as well as the catheter. He had uneventful postoperative course up until several days ago when he started experiencing low back pain and fever. He has noted drainage at the pump site. She brought him to the emergency room where CT scan was performed. A demonstrated fluid collection at the pump pocket site in the right lower quadrant of the abdomen as well as possible CSF pocket in the lumbar spine wound. He was subsequently admitted for IV antibiotics and for explantation of intrathecal pump system. Past Medical/Surgical History (1) Depressive disorder (2) Neurogenic bowel (3) Neurogenic bladder (4) Hypertension (5) History of traumatic brain injury (6) Spastic paraparesis (7) History of tibial fracture (8) history of Steedman filter placement (9) Osteoarthritis (10) Urinary bladder stone (11) Cognitive dysfunction (12) Incomplete spinal cord injury (13) History of spinal fusion Family History Patient reports no known family medical history. Social / Work History Marital Status: Housing Status: lives with significant other Occupation: disabled Allergies Coded Allergies: Penicillins (Verified Allergy, Unknown, UNKNOWN, 07/14/17) Sulfamethoxazole w/Trimethoprim (Verified Allergy, Unknown, PENIS RED, INFECTION, 07/14/17) Haloperidol (Unverified Adverse Reaction, Intermediate, Confusion,agitated ,hallucinations, 07/14/17) Medications Current Inpatient Medications Medications (Trade) Dose Ordered Sig/Narinder Route Start Time Stop Time Status Last Admin Dose Admin Ioversol (Optiray 320) 111 ml UD PRN IV 07/15/17 00:00 07/19/17 00:00 Ascorbic Acid (Vitamin C Tab) 500 mg QAM PO 07/15/17 09:00 08/14/17 08:59 07/16/17 09:07 500 MG Aspirin (Ecotrin Tab) 81 mg QAM PO 07/15/17 09:00 08/14/17 08:59 07/16/17 09:07 81 MG Calcium/Vitamin D (Caltrate Plus Tab) 1 tab QAM PO 07/15/17 09:00 08/14/17 08:59 07/16/17 09:07 1 TAB Donepezil HCl (Aricept Tab) 10 mg HS PO 07/15/17 21:00 08/14/17 20:59 07/15/17 21:08 10 MG Duloxetine HCl (Cymbalta Cap) 60 mg QAM PO 07/15/17 09:00 08/14/17 08:59 07/16/17 09:07 60 MG Lisinopril (Zestril Tab) 20 mg QAM PO 07/15/17 09:00 08/14/17 08:59 07/16/17 09:07 20 MG Miscellaneous Information (Order Awaiting Action) 1 ea QS N/A 07/15/17 08:00 08/14/17 07:59 Acetaminophen (Tylenol Tab) 650 mg Q4H PRN PO 07/15/17 03:15 08/14/17 03:14 07/16/17 07:58 650 MG Al Hydrox/Mg Hydrox/Simethicone (Maalox Max Susp) 15 ml Q4H PRN PO 07/15/17 03:15 08/14/17 03:14 Magnesium Hydroxide (Milk Of Magnesia Susp) 30 ml Q6H PRN PO 07/15/17 03:15 08/14/17 03:14 Ondansetron HCl (Zofran Inj) 4 mg Q6H PRN IV 07/15/17 03:15 08/14/17 03:14 Daptomycin 500 mg/ Syringe 10 ml @ 5 mls/min Q24H IV 07/16/17 02:00 07/26/17 01:59 07/16/17 02:06 5 MLS/MIN Polyethylene (Miralax Powder Packet) 17 gm DAILY PRN PO 07/15/17 06:00 08/14/17 05:59 Acetaminophen/ Hydrocodone Bitart ([place] 5/325 Tab) 1 tab BID PO 07/15/17 12:00 07/29/17 08:59 07/16/17 09:09 1 TAB Baclofen (Lioresal Tab) 10 mg TID PO 07/15/17 14:00 08/14/17 13:59 07/16/17 09:06 10 MG Baclofen (Lioresal Tab) 10 mg TID PRN PO 07/15/17 11:30 08/14/17 11:29 Acetaminophen/ Hydrocodone Bitart ([place] 5/325 Tab) 1 tab Q4H PRN PO 07/15/17 13:45 07/29/17 13:44 Hydromorphone HCl (Dilaudid Inj) 0.5 mg Q2H PRN IM 07/15/17 13:45 07/29/17 13:44 Sodium Chloride 1,000 ml @ 75 mls/hr [id number] IV 07/15/17 23:00 07/17/17 01:39 07/16/17 12:15 75 MLS/HR Gadobutrol (Gadavist) 9.5 mmol UD PRN IV 07/15/17 22:40 07/19/17 22:39 Physical Exam Height & Weight: Height 5 feet, 11.00 inches. Weight 95.000 (Kilograms) 209 (Pounds) Last Vital Signs Documentation Date Time Temp Pulse Resp B/P (MAP) Pulse Ox O2 Delivery O2 Flow Rate FiO2 07/16/17 12:00 36.7 99 Nasal Cannula 2.0 07/16/17 08:06 92 24 114/62 (79) 07/15/17 05:52 99 Exam: Galileo is awake and alert. He is febrile. He appears to be comfortable and not in distress. Examination of the pump pocket site demonstrates brown, purulent discharge over the lateral edge of the incision. Back incision appears unremarkable. He has minimal spasticity in lower extremities. Laboratory Laboratory Results (Last CBC): 07/16/17 08:23 Red Blood Count 3.40 L, Mean Corpuscular Volume 89.4, Mean Corpuscular Hemoglobin 29.1, Mean Corpuscular Hemoglobin Concent 32.6, Mean Platelet Volume 10.4, Neutrophils (%) (Auto) 87.0, Lymphocytes (%) (Auto) 3.9, Monocytes (%) ( Auto) 8.5, Eosinophils (%) (Auto) 0.0, Basophils (%) (Auto) 0.2, Neutrophils # ( Auto) 10.15 H, Lymphocytes # (Auto) 0.45 L, Monocytes # (Auto) 0.99 H, Eosinophils # (Auto) 0.00, Basophils # (Auto) 0.02 [place] Drug Monitoring Program Search Results: patient reviewed within database Opioid Risk Assessment Risk assessment performed, minimal risk identified Assessment 1. Infected pump pocket site right lower quadrant of the abdomen. 2. Probable CSF collection at the catheter insertion site lumbar spine. 3. Spastic paraparesis due to spinal cord injury in the remote past. Recommendations 1. Recommend urgent explantation of the intrathecal pump delivery system. Patient gives informed consent and wished to proceed. 2. Wound care consult postoperatively. 3. Oral baclofen for spasticity. 4. Antibiotic therapy as guided by infectious disease consultation and hospitalist service.
--- NOTE | 2017-07-16 18:21 | ECHOCARDIOGRAM REPORT ---
*NOTICE TO RECEIVING [employer] This information is strictly Confidential and protected under [place] law. [place] law prohibits you from making any further disclosure of this information unless further disclosure is expressly permitted by the written consent of the person to whom it pertains or is authorized by law. A general authorization for the release of medical or other information is not sufficient for this purpose. Hospital accepts no responsibility if the information is made available to any other person, INCLUDING THE PATIENT. Interpretation Summary * Name: REANNA CHAVIRA Study Date: 07/16/2017 01:18 PM BP: 114/62 mmHg * Patient Location: .MSN\S\N383\S\2 HR: 78 * : 1950 (M/d/yy) Gender: Male Height: 71 in * Age: 67 yrs Ethnicity: [place] Weight: 209 lb * Ordering Physician: Dion Langston * Referring Physician: Self, Referred * Performed By: Kanika Ellison RDCS * * Reason For Study: RULE OUT VEGETATION * BSA: 2.1 m2 * -- Conclusions -- * 1. Normal LV size. Normal LV wall thickness. * 2. Low-normal LV function. LVEF 50-55 %. * 3. Borderline dilated RV, normal RV and function. * 4. Aortic valve sclerosis without stenosis. No significant valvular pathology or vegetations noted. * 5. No prior studies for comparison. Procedure Details * A contrast injection of Definity was performed to improve assessment of LV function. * Contrast was injected into an intravenous site in the left arm. * One vial of Definity ultrasound contrast was diluted in normal saline to a total volume of 10 ml. A total of '1' ml of solution was administered during imaging. * Lot # [id number] of Definity utilized for procedure. * Expiration date 1 AUG 18. * The attending nurse who injected the contrast agent was RICK JOHNSON RN. Left Ventricle * The left ventricle is grossly normal size. * There is mild concentric left ventricular hypertrophy. * Ejection Fraction = 50-55%. * Flattened septum is consistent with RV volume overload. Right Ventricle * The right ventricle is borderline dilated. * The right ventricular systolic function is normal as assessed by tricuspid annular plane systolic excursion (TAPSE) (normal >1.5 cm). Atria * The left atrial size is normal. * Right atrial size is normal. * No ASD detected; PFO is not assessed. Mitral Valve * The mitral valve is grossly normal. * There is no vegetation seen on the mitral valve. * There is no mitral valve stenosis. * There is trace mitral regurgitation. Tricuspid Valve * There is no tricuspid stenosis. * There is trace tricuspid regurgitation. Aortic Valve * Aortic valve sclerosis mild, without significant aortic valvular stenosis. * Cannot exclude aortic valvular vegetation. * No hemodynamically significant valvular aortic stenosis. * Trace aortic regurgitation. Pulmonic Valve * The pulmonary valve is inadequately visualized, but the Doppler data is adequate for interpretation. * There is no significant pulmonary regurgitation. Great Vessels * The aortic root and proximal ascending aorta are normal sized. Pericardium/Pleural * There is no pericardial effusion. MMode 2D Measurements and Calculations IVSd 1.2 cm IVSs 1.7 cm LVIDd 4.7 cm LVIDs 3.5 cm LVPWd 1.2 cm LVPWs 1.9 cm IVS/LVPW 0.94 FS 25.6 % EDV(Teich) 102.0 ml ESV(Teich) 50.5 ml EF(Teich) 50.5 % EDV(cubed) 103.3 ml ESV(cubed) 42.5 ml EF(cubed) 58.9 % % IVS thick 46.5 % % LVPW thick 54.5 % LV mass(C)d 209.3 grams LV mass(C)dI 97.4 grams/m\S\2 LV mass(C)s 260.3 grams LV mass(C)sI 121.2 grams/m\S\2 SV(Teich) 51.5 ml SI(Teich) 24.0 ml/m\S\2 SV(cubed) 60.8 ml SI(cubed) 28.3 ml/m\S\2 Ao root diam 3.8 cm Ao root area 11.1 cm\S\2 LA dimension 3.0 cm LA/Ao 0.79 LVAd ap4 31.6 cm\S\2 LVLd ap4 8.4 cm EDV(MOD-sp4) 96.8 ml EDV(sp4-el) 100.8 ml LVAs ap4 20.1 cm\S\2 LVLs ap4 7.3 cm ESV(MOD-sp4) 44.8 ml ESV(sp4-el) 47.1 ml EF(MOD-sp4) 53.7 % EF(sp4-el) 53.3 % LVAd ap2 30.0 cm\S\2 LVLd ap2 8.4 cm EDV(MOD-sp2) 87.4 ml EDV(sp2-el) 91.6 ml LVAs ap2 18.9 cm\S\2 LVLs ap2 7.1 cm ESV(MOD-sp2) 41.2 ml ESV(sp2-el) 42.7 ml EF(MOD-sp2) 52.9 % EF(sp2-el) 53.4 % LVLd %diff -0.47 % EDV(MOD-bp) 93.1 ml LVLs %diff -2.06 % ESV(MOD-bp) 43.6 ml EF(MOD-bp) 53.2 % SV(MOD-sp4) 51.9 ml SI(MOD-sp4) 24.2 ml/m\S\2 SV(MOD-sp2) 46.2 ml SI(MOD-sp2) 21.5 ml/m\S\2 SV(MOD-bp) 49.5 ml SI(MOD-bp) 23.1 ml/m\S\2 SV(sp4-el) 53.7 ml SI(sp4-el) 25.0 ml/m\S\2 SV(sp2-el) 48.9 ml SI(sp2-el) 22.8 ml/m\S\2 Doppler Measurements and Calculations Ao V2 max 171.7 cm/sec Ao max PG 11.8 mmHg Ao max PG (full) 7.3 mmHg LV V1 max PG 4.4 mmHg LV V1 max 105.4 cm/sec TR max mariza 216.6 cm/sec
[2017-07-16] MEDS: HYDROCODONE/ACETAMIN 5/325MG TAB PO PRN (19:51)
[2017-07-16] MEDS ORDERED: GADAVIST IV PRN (20:50)
[2017-07-16] MEDS: DONEPEZIL HCL 10 MG TAB PO SCH (21:40)
--- NOTE | 2017-07-16 21:51 | DIAGNOSTIC IMAGING REPORT ---
MRI LUMBAR SPINE COMBO CLINICAL HISTORY: Clinical concern for intrathecal abscess. COMPARISON STUDY: Abdominal CT dated 07/15/2017. MRI of thoracic spine dated 07/15/2017. TECHNIQUE: MRI of the lumbar spine is performed utilizing various T1 and T2-weighted sequences in the axial and sagittal planes. Contrast-enhanced sequences are acquired following the IV administration of 9.5 cc of Gadavist. The examination is significantly compromise by susceptibility artifact from metallic hardware as well as motion artifact and suboptimal positioning. FINDINGS: Lumbar spine: Vertebral body height and alignment are maintained throughout the lumbar spine. There is a hemitransitional lumbosacral segment will be labeled L5 for the purposes of this examination. Marrow signal intensity is heterogeneous and there is fatty replacement. The transverse and spinous processes are grossly intact. There is no evidence of spondylolysis. No destructive osseous lesion is seen. Small anterior osteophytes are seen throughout. Minimal degenerative endplate edema is seen at L3-L4. Spinal rods are present within the lower thoracic region, terminating at L1. Intervertebral discs: Degenerative disc desiccation is seen throughout the lumbar spine. There is moderate loss of height at L3-L4 and L4-L5. There is fluid within the L3-L4 disc space. Spinal cord and central canal: The spinal cord is not well assessed due to extensive susceptibility artifact. The nerve roots of the cauda equina are normal in morphology. There is an equivocal posterior epidural fluid collection eccentric on the left the is questioned on axial T1 postcontrast image #10 and measures approximately 2 x 1 x 0.7 cm. This is seen at the level of L2. T12-L1: Not well evaluated due to susceptibility artifact. L2-L3: Grossly unremarkable. L2-L3: The central canal and neural foramina are grossly clear. Facet arthropathy is no consequence. L3-L4: There is a posterior disc bulge with annular fissure. In conjunction with hypertrophy of the ligamentum flavum there is at least moderate central canal stenosis with a minimum AP diameter of 6 mm. There is bilateral subarticular stenosis. The disc bulge may impinge on the exiting bilateral L4 and the transiting bilateral nerve roots. Facet arthropathy causes at least mild bilateral neural foraminal stenosis. L4-L5: There is a posterior disc bulge. There is no significant compromise of the central canal. There is left-sided subarticular stenosis, with possible impingement on the exiting left L4 and the transiting left L5 nerve roots. L5-S1: Not assessed. Sacrum: The visualized sacrum is normal in morphology and signal intensity. Soft tissues: There is significant fatty atrophy of the paraspinous musculature. There is no evidence of psoas muscle fluid collection. A 4.5 cm T1 and T2 hypointense structure within the posterior soft tissues at L1-L2 likely represents the site of a stimulator device removal. IMPRESSION: 1. Significantly compromised examination as above. This limits diagnostic utility. 2. An equivocal epidural collection is questioned within the posterior thecal sac at the level of L2 as above. This is not well assessed and a small epidural abscess is suspected. Clinical correlation will be essential. 3. There is fluid within the L3-L4 disc space. This is nonspecific and discitis would be impossible to exclude. Clinical correlation will be essential. There is no evidence of corresponding osteomyelitis. 4. Postoperative and spondylotic change as above. Electronically signed by: Santhosh Hassan M.D. 07/16/2017 9:50 PM Dictated Date/Time: 07/16/2017 9:28 PM
[2017-07-16] MEDS ORDERED: VANCOMYCIN CONSULT ACTIVE PRN (22:45)
--- NOTE | 2017-07-16 22:58 | Progress Note ---
Progress Note Date of Service Jul 16, 2017. Progress Note discussed MRI with radiologist, concerning for possible epidural abscess however poor MRI results Discussed with pharmacist, cont dapto for now but better [employer] coverage with vanco and as no sensitivities as of yet will give loading dose of vanco x 1 day team can reassess abx discussed case with Dr Gutiérrez, made aware and patient will be seen afebrile today except for temp of 39.3, nurse also notes a new O2 req as without 2 L he sats at 88%- repeat CXR
[2017-07-16] MEDS ORDERED: VANCOMYCIN INJ 2,250 MG in SODIUM CHLORIDE 0.9% 500ML 500 ML IV ONE (23:15)
[2017-07-16] MEDS ORDERED: POTASSIUM CHLORIDE 20 MEQ TABCR PO STA (23:18)
[2017-07-17] MEDS: HYDROCODONE/ACETAMIN 5/325MG TAB PO PRN ×2 (01:58→07:26)
[2017-07-17] MEDS: DAPTOmycin IV 500 MG in SYRINGE 0 ML IV SCH (02:49)
[2017-07-17 03:57] VITALS: BP 95/54; PULSE 78; TEMP 38; O2SAT 98
--- NOTE | 2017-07-17 06:43 | DIAGNOSTIC IMAGING REPORT ---
CHEST ONE VIEW PORTABLE HISTORY: 67 years-old Male new onset hypoxia with fevers yesterday acute hypoxia with fever COMPARISON: Chest radiograph 07/15/2017, CT abdomen and pelvis 07/15/2017 TECHNIQUE: Portable AP view of the chest FINDINGS: Cardiac silhouette is moderately enlarged, unchanged. There is no pneumothorax or large pleural effusion. Lungs are mildly hypoinflated with chronic appearing blunting of the left costophrenic angle. Linear subsegmental bibasilar opacities are noted. Bones appear grossly intact. Advanced degenerative changes of the right shoulder with fusion hardware of the thoracic or lumbar spine. IMPRESSION: 1. Cardiomegaly without pulmonary edema. 2. Linear subsegmental bibasilar opacities suggest atelectasis. The above report was generated using voice recognition software. It may contain grammatical, syntax or spelling errors. Electronically signed by: Jorge Alberto Kapadia M.D. 07/17/2017 6:41 AM Dictated Date/Time: 07/17/2017 6:39 AM
[2017-07-17 06:54] VITALS: BP 112/67; PULSE 83; TEMP 37.2; O2SAT 95
[2017-07-17] MEDS: CALCIUM 600MG + VIT D 400 IU TAB PO SCH (08:02)
[2017-07-17] MEDS: DULOXETINE HCL 60 MG CAP PO SCH (08:02)
[2017-07-17] MEDS: LISINOPRIL 20 MG TAB PO SCH (08:02)
[2017-07-17] MEDS: BACLOFEN 10 MG TAB PO SCH ×4 (08:03→21:36)
--- NOTE | 2017-07-17 08:26 | Progress Note ---
Subjective Date of Service: Jul 16, 2017. Subjective Pt evaluation today including: conversation w/ patient, physical exam 67 yo male seen at 16:00. Patient reports feeling well. Patient has no complaints today. Problem List Medical Problems: (1) Infection of intrathecal pump Status: Acute Review of Systems Constitutional: No fever, No chills Eyes: No worsening of vision, No eye pain ENT: No hearing loss, No unusual epistaxis Respiratory: No cough, No sputum Cardiac: No chest pain, No orthopnea Abdomen: No pain, No nausea Psychiatric: No depression symptoms, No anhedonism Endo: No fatigue Skin: No rash, No itch All Other Systems: Reviewed and Negative Medications Current Inpatient Medications Medications (Trade) Dose Ordered Sig/Narinder Route Start Time Stop Time Status Last Admin Dose Admin Ioversol (Optiray 320) 111 ml UD PRN IV 07/15/17 00:00 07/19/17 00:00 Ascorbic Acid (Vitamin C Tab) 500 mg QAM PO 07/15/17 09:00 08/14/17 08:59 07/17/17 08:41 500 MG Aspirin (Ecotrin Tab) 81 mg QAM PO 07/15/17 09:00 08/14/17 08:59 07/17/17 08:41 81 MG Calcium/Vitamin D (Caltrate Plus Tab) 1 tab QAM PO 07/15/17 09:00 08/14/17 08:59 07/17/17 08:02 1 TAB Donepezil HCl (Aricept Tab) 10 mg HS PO 07/15/17 21:00 08/14/17 20:59 07/16/17 21:40 10 MG Duloxetine HCl (Cymbalta Cap) 60 mg QAM PO 07/15/17 09:00 08/14/17 08:59 07/17/17 08:02 60 MG Lisinopril (Zestril Tab) 20 mg QAM PO 07/15/17 09:00 08/14/17 08:59 07/17/17 08:02 20 MG Miscellaneous Information (Order Awaiting Action) 1 ea QS N/A 07/15/17 08:00 08/14/17 07:59 Acetaminophen (Tylenol Tab) 650 mg Q4H PRN PO 07/15/17 03:15 08/14/17 03:14 07/16/17 07:58 650 MG Al Hydrox/Mg Hydrox/Simethicone (Maalox Max Susp) 15 ml Q4H PRN PO 07/15/17 03:15 08/14/17 03:14 Magnesium Hydroxide (Milk Of Magnesia Susp) 30 ml Q6H PRN PO 07/15/17 03:15 08/14/17 03:14 Ondansetron HCl (Zofran Inj) 4 mg Q6H PRN IV 07/15/17 03:15 08/14/17 03:14 Daptomycin 500 mg/ Syringe 10 ml @ 5 mls/min Q24H IV 07/16/17 02:00 07/26/17 01:59 07/17/17 02:49 5 MLS/MIN Polyethylene (Miralax Powder Packet) 17 gm DAILY PRN PO 07/15/17 06:00 08/14/17 05:59 Acetaminophen/ Hydrocodone Bitart ([place] 5/325 Tab) 1 tab BID PO 07/15/17 12:00 07/29/17 08:59 07/17/17 08:41 1 TAB Acetaminophen/ Hydrocodone Bitart ([place] 5/325 Tab) 1 tab Q4H PRN PO 07/15/17 13:45 07/29/17 13:44 07/17/17 07:26 1 TAB Hydromorphone HCl (Dilaudid Inj) 0.5 mg Q2H PRN IM 07/15/17 13:45 07/29/17 13:44 Gadobutrol (Gadavist) 9.5 mmol UD PRN IV 07/15/17 22:40 07/19/17 22:39 Gadobutrol (Gadavist) 9.5 mmol UD PRN IV 07/16/17 20:50 07/20/17 20:49 Miscellaneous Information (Consult) 1 ea UD PRN N/A 07/16/17 22:45 08/15/17 22:44 Baclofen (Lioresal Tab) 20 mg TID PO 07/17/17 10:00 08/16/17 09:59 Objective Vital Signs Date Time Temp Pulse Resp B/P (MAP) Pulse Ox O2 Delivery O2 Flow Rate FiO2 07/17/17 06:54 37.2 83 18 112/67 (82) 95 Nasal Cannula 2.0 07/17/17 03:57 38.0 78 18 95/54 (68) 98 Nasal Cannula 2.0 07/16/17 23:15 36.9 76 22 96/59 (71) 94 Nasal Cannula 1.5 Humidified Oxygen 07/16/17 23:15 94 Nasal Cannula 1.5 Humidified Oxygen 07/16/17 22:56 36.8 85 18 104/59 (74) 95 Nasal Cannula 2.0 Humidified Oxygen 07/16/17 16:05 93/54 (67) 07/16/17 15:50 95 Nasal Cannula 2.0 07/16/17 15:27 36.8 73 16 84/51 (62) 95 Nasal Cannula 1.0 07/16/17 12:00 36.7 99 Nasal Cannula 2.0 Physical Exam Comments: General Appearance: WD/WN, no apparent distress Head: normocephalic Eyes: normal inspection ENT: normal ENT inspection, pharynx normal Neck: supple, no JVD Respiratory/Chest: chest non-tender, lungs clear, normal breath sounds Cardiovascular: regular rate, rhythm, no edema, no gallop Abdomen/GI: normal bowel sounds, non tender to palpation Back: normal inspection, no CVA tenderness 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, alert, normal mood/affect, oriented x 3, + pertinent finding (Chronic paraplegia as above) Skin: + pertinent finding (Inflammation of abdominal wall as above - abscess at surgical site) Laboratory Results Last 24 Hours Test 07/17/17 06:35 Urine Color YELLOW Urine Appearance CLOUDY Urine pH 5.0 Urine Specific Richards 1.028 Urine Protein NEG Urine Glucose (UA) NEG Urine Ketones NEG Urine Occult Blood NEG Urine Nitrite NEG Urine Bilirubin NEG Urine Urobilinogen NEG Urine Leukocyte Esterase SMALL Urine WBC (Auto) 5-10 /hpf Urine RBC (Auto) 0-4 /hpf Urine Hyaline Casts (Auto) 1-5 /lpf Urine Epithelial Cells (Auto) >30 /lpf Urine Bacteria (Auto) 2+ Urine Renal Epithelial Cells /lpf Urine Pathogenic Casts /lpf Assessment and Plan 67 y/o M Hx paraplegia following spinal cord injury, neurogenic bladder, depression, HTN, DVT, traumatic brain injury. Pt had a revision of a Baclofen pump which was the 4th such revision. He developed pain and swelling in the area. He could not confirm a fever. He denies additional acute symptoms. 1) Abscess at site of Baclofen pump placement and possibly posterior to L1 - Patient had pump removed and abscess incised and drained. Patient however, has been intermittently febrile. WBC has improved. Awaiting further imaging to rule out lumbar involvement. Including MRI. Pt placed on Aztreonam, Dapto in ER Wound cultures pending 2) HTN - cont Lisinopril 3) Spinal cord injury - cont Baclofen pending pump replacement - will likely need to transition to oral for a period - cont Oxycodone as needed 4)hypokalemia: replaced. will recheck in AM. Full code - SCDs pending surgery eval Continued [facility] stay due to: fever, multiple IV medications needed
[2017-07-17] MEDS: HYDROCODONE/ACETAMIN 5/325MG TAB PO SCH ×2 (08:41→21:36)
[2017-07-17] MEDS: ASCORBIC ACID 500 MG TAB PO SCH (08:41)
[2017-07-17] MEDS: ASPIRIN 81 MG ECTAB PO SCH (08:41)
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
--- NOTE | 2017-07-17 10:09 | Pain Management Progress Note ---
Pain Management Progress Note Date of Service Jul 17, 2017. Subjective Galileo reports experiencing lower right extremity spasms this morning. He has been receiving baclofen 10 mg 3 times a day at a scheduled dose but has not used any when necessary dosages. He also had a fever spike up to 39C last night. He continues to report minimal low back pain that is unchanged prior to his admission. He underwent an MRI of the thoracic and lumbar spine to evaluate for any epidural or intrathecal abscess as his reported that he was experiencing increased low back pain prior to his admission. He denies any new neurological symptoms including any weakness, perineal pain, increased low back pain or any other constitutional symptoms that have changed or worsened since his admission. He received a loading dose of IV vancomycin for possible intrathecal/epidural abscess considered to be present on lumbar spine MRI. He also underwent evaluation by Dr. Gutiérrez regarding the MRI findings. Objective Vital Signs: Last Vital Signs Documentation Date Time Temp Pulse Resp B/P (MAP) Pulse Ox O2 Delivery O2 Flow Rate FiO2 07/17/17 06:54 37.2 83 18 112/67 (82) 95 Nasal Cannula 2.0 07/15/17 05:52 99 Physical Exam: Galileo remains awake, alert, and oriented times place and person. He demonstrates normal and clear sensorium. He demonstrates intact short-term and long-term memory. His mood and affect are appropriate. He demonstrates moderate extent of fine tremors in his right lower extremity, which are more prevalent today than yesterday. He also has rigidity of his right lower extremity with increased hip and knee flexion tone. Lumbar spine and right lower quadrant abdominal wound dressings are in place with the wound VAC attached. Laboratory Laboratory Findings 07/16/17 08:23 Red Blood Count 3.40 L, Mean Corpuscular Volume 89.4, Mean Corpuscular Hemoglobin 29.1, Mean Corpuscular Hemoglobin Concent 32.6, Mean Platelet Volume 10.4, Neutrophils (%) (Auto) 87.0, Lymphocytes (%) (Auto) 3.9, Monocytes (%) ( Auto) 8.5, Eosinophils (%) (Auto) 0.0, Basophils (%) (Auto) 0.2, Neutrophils # ( Auto) 10.15 H, Lymphocytes # (Auto) 0.45 L, Monocytes # (Auto) 0.99 H, Eosinophils # (Auto) 0.00, Basophils # (Auto) 0.02 Imaging MRI: enhanced MRI Findings LUMBAR SPINE MRI: IMPRESSION: 1. Significantly compromised examination as above. This limits diagnostic utility. 2. An equivocal epidural collection is questioned within the posterior thecal sac at the level of L2 as above. This is not well assessed and a small epidural abscess is suspected. Clinical correlation will be essential. 3. There is fluid within the L3-L4 disc space. This is nonspecific and discitis would be impossible to exclude. Clinical correlation will be essential. There is no evidence of corresponding osteomyelitis. 4. Postoperative and spondylotic change as above. Electronically signed by: Santhosh Hassan M.D. 07/16/2017 9:50 PM Dictated Date/Time: 07/16/2017 9:28 PM THORACIC SPINE MRI: IMPRESSION: 1. No thoracic epidural abscess. No acute abnormality within the thoracic spine by MRI. Evaluation compromised given fusion hardware but no significant abnormality identified. 2 The patient will return for completion of the lumbar spine MRI. Single sagittal sequence of the lumbar spine demonstrates an equivocal posterior intracanalicular fluid collection which is likely artifactual however should be assessed on the completion MRI to exclude an intracanalicular fluid collection. 3. 4.7 x 2.6 cm T2 hypointense subcutaneous abnormality of the lower back which represents catheter removal site. Electronically signed by: Wilman Plata M.D. 07/16/2017 8:24 AM Dictated Date/Time: 07/16/2017 6:45 AM Assessment 1. Status post explantation of intrathecal pump and catheter system for right lower quadrant abdominal wound site infection. 2. MRI finding suggestive of possible epidural/intrathecal abscess at L2 level. 3. Spinal cord injury with paraparesis. Recommendations 1. MRI findings were discussed with Dr. Gutiérrez. It is recommended to repeat the MRI 5-7 days if the symptoms remain the same. Recommends earlier imaging if he continues to spike temperatures are clinically symptoms worsen. Additionally, with patient's consent, these findings were discussed with Dr. Jony Benoit, [facility] neurosurgery. He has agreed to look at the imaging and provide further input in management of these findings. Mr. Cevallos has consented and has signed the appropriate documentation required for Dr. Benoit to review his imaging. 2. Await further input from infectious disease regarding the new findings. 3. Increase baclofen to 20 mg by mouth 3 times a day for spasms.
[2017-07-17 11:43] LABS: BASO % 0.3 %; BASO ABS # 0.03 K/uL (0-0.2); EOS % 0.5 %; EOS ABS # 0.06 K/uL (0-0.5); HEMATOCRIT 28.7 % (42-52); HEMOGLOBIN 9.4 g/dL (14.0-18.0); IG# 0.06 K/uL (0.00-0.02); LYMPH % 6.6 %; LYMPH ABS # 0.75 K/uL (1.2-3.4); MEAN CELL VOLUME 88.9 fL (80-100); MEAN CORPUSCULAR HEMOGLOBIN 29.1 pg (25-34); MEAN CORPUSCULAR HGB CONC 32.8 g/dl (32-36); MEAN PLATELET VOLUME 10.4 fL (7.4-10.4); MONO % 7.3 %; MONO ABS # 0.83 K/uL (0.11-0.59); NEUT % 84.8 %; NEUT ABS # 9.67 K/uL (1.4-6.5); PLATELET COUNT 130 K/uL (130-400); RED CELL DISTRIBUTION WIDTH CV 13.4 % (11.5-14.5); RED CELL DISTRIBUTION WIDTH SD 44.2 fL (36.4-46.3)
[2017-07-17 12:05] LABS: CALCIUM 8.3 mg/dl (8.5-10.1); CREATININE 0.83 mg/dl (0.60-1.40); POTASSIUM 3.7 mmol/L (3.5-5.1)
--- NOTE | 2017-07-17 14:40 | Progress Note ---
Subjective Date of Service: Jul 17, 2017. Subjective Pt evaluation today including: conversation w/ patient, physical exam, chart review, lab review seen in followup, no complaints, denies fevers, tmax 38, fevers overall improving. all blood cultures +, previous with MSSA remains on dapto since admission, also received vanco x 1 last night. MRI done, ? collection at L3, s/ p ortho eval, neurosurgery [place] to review images as well. Echo negative for veg, TTE. tolerating abx, does not know his pcn allergy. denies pain at wound, s /p vac. all remaining ros reviewed and are negative, wbc decreasing. getting blood cultures on my exam. Problem List Medical Problems: (1) Infection of intrathecal pump Status: Acute Objective Vital Signs Date Time Temp Pulse Resp B/P (MAP) Pulse Ox O2 Delivery O2 Flow Rate FiO2 07/17/17 06:54 37.2 83 18 112/67 (82) 95 Nasal Cannula 2.0 07/17/17 03:57 38.0 78 18 95/54 (68) 98 Nasal Cannula 2.0 07/16/17 23:15 36.9 76 22 96/59 (71) 94 Nasal Cannula 1.5 Humidified Oxygen 07/16/17 23:15 94 Nasal Cannula 1.5 Humidified Oxygen 07/16/17 22:56 36.8 85 18 104/59 (74) 95 Nasal Cannula 2.0 Humidified Oxygen 07/16/17 16:05 93/54 (67) 07/16/17 15:50 95 Nasal Cannula 2.0 07/16/17 15:27 36.8 73 16 84/51 (62) 95 Nasal Cannula 1.0 Physical Exam General Appearance: WD/WN, no apparent distress Eyes: normal inspection, EOMI Neck: supple Respiratory/Chest: lungs clear, normal breath sounds, no respiratory distress Cardiovascular: regular rate, rhythm, no edema Abdomen: soft, + pertinent finding (vac in place, no surrounding erythema) Extremities: no pedal edema Neurologic/Psychiatric: alert, oriented x 3 Skin: normal color Laboratory Results Item Value Date Time Blood Culture - Preliminary Resulted 07/16/17 1036 Blood Gram Positive Cocci Gram Stain - Final Complete 07/14/17 0000 Incision Site Abdomin, Right Lower Quadrant Last 24 Hours Test 07/17/17 06:35 07/17/17 11:21 Urine Color YELLOW Urine Appearance CLOUDY Urine pH 5.0 Urine Specific [place] 1.028 Urine Protein NEG Urine Glucose (UA) NEG Urine Ketones NEG Urine Occult Blood NEG Urine Nitrite NEG Urine Bilirubin NEG Urine Urobilinogen NEG Urine Leukocyte Esterase SMALL Urine WBC (Auto) 5-10 /hpf Urine RBC (Auto) 0-4 /hpf Urine Hyaline Casts (Auto) 1-5 /lpf Urine Epithelial Cells (Auto) >30 /lpf Urine Bacteria (Auto) 2+ Urine Renal Epithelial Cells /lpf Urine Pathogenic Casts /lpf White Blood Count 11.40 K/uL Red Blood Count 3.23 M/uL Hemoglobin 9.4 g/dL Hematocrit 28.7 % Mean Corpuscular Volume 88.9 fL Mean Corpuscular Hemoglobin 29.1 pg Mean Corpuscular Hemoglobin Concent 32.8 g/dl Platelet Count 130 K/uL Mean Platelet Volume 10.4 fL Neutrophils (%) (Auto) 84.8 % Lymphocytes (%) (Auto) 6.6 % Monocytes (%) (Auto) 7.3 % Eosinophils (%) (Auto) 0.5 % Basophils (%) (Auto) 0.3 % Neutrophils # (Auto) 9.67 K/uL Lymphocytes # (Auto) 0.75 K/uL Monocytes # (Auto) 0.83 K/uL Eosinophils # (Auto) 0.06 K/uL Basophils # (Auto) 0.03 K/uL RDW Standard Deviation 44.2 fL RDW Coefficient of Variation 13.4 % Immature Granulocyte % (Auto) 0.5 % Immature Granulocyte # (Auto) 0.06 K/uL Sodium Level 137 mmol/L Potassium Level 3.7 mmol/L Chloride Level 106 mmol/L Carbon Dioxide Level 27 mmol/L Anion Gap 4.0 mmol/L Blood Urea Nitrogen 23 mg/dl Creatinine 0.83 mg/dl Est Creatinine Clear Calc Drug Dose 100.2 ml/min Estimated GFR () 104.8 Estimated GFR (Non- 90.4 BUN/Creatinine Ratio 27.5 Random Glucose 100 mg/dl Calcium Level 8.3 mg/dl Assessment and Plan (1) Staphylococcus aureus septicemia Assessment & Plan: not yet cleared, continue on dapto for now with h/o pcn allergy, repeat cultures pending. await neurosurgery input, no need for additional vanco. follow cultures. (2) Infection of intrathecal pump Continued [facility] stay due to: fever, multiple IV medications needed Problem Qualifiers (1) Infection of intrathecal pump: Encounter type: initial encounter Qualified Codes: T85.738A - Infection and inflammatory reaction due to other nervous system device, implant or graft, initial encounter
[2017-07-17 15:04] VITALS: BP 118/66; PULSE 78; TEMP 37.8; O2SAT 92
[2017-07-17 15:40] VITALS: O2SAT 92
--- NOTE | 2017-07-17 16:04 | Progress Note ---
Subjective Date of Service: Jul 17, 2017. Subjective Pt evaluation today including: conversation w/ patient, physical exam Patient reports feeling well. Patient denies any subjective fever, chills, nausea vomting. Patient reports having pain on is back, however he states that this is not new. Patient is unable to lie on back due to the pain. Again, he states this is not new. Problem List Medical Problems: (1) Infection of intrathecal pump Status: Acute Review of Systems Constitutional: No fever, No chills ENT: No hearing loss Respiratory: No cough, No sputum Cardiac: No chest pain, No orthopnea Abdomen: No pain Musculoskeletal: + muscle pain Neurologic: + paralysis, No memory loss Heme: No abnormal bleeding/bruising Endo: No fatigue Skin: No rash All Other Systems: Reviewed and Negative Medications Current Inpatient Medications Medications (Trade) Dose Ordered Sig/Narinder Route Start Time Stop Time Status Last Admin Dose Admin Ioversol (Optiray 320) 111 ml UD PRN IV 07/15/17 00:00 07/19/17 00:00 Ascorbic Acid (Vitamin C Tab) 500 mg QAM PO 07/15/17 09:00 08/14/17 08:59 07/17/17 08:41 500 MG Aspirin (Ecotrin Tab) 81 mg QAM PO 07/15/17 09:00 08/14/17 08:59 07/17/17 08:41 81 MG Calcium/Vitamin D (Caltrate Plus Tab) 1 tab QAM PO 07/15/17 09:00 08/14/17 08:59 07/17/17 08:02 1 TAB Donepezil HCl (Aricept Tab) 10 mg HS PO 07/15/17 21:00 08/14/17 20:59 07/16/17 21:40 10 MG Duloxetine HCl (Cymbalta Cap) 60 mg QAM PO 07/15/17 09:00 08/14/17 08:59 07/17/17 08:02 60 MG Lisinopril (Zestril Tab) 20 mg QAM PO 07/15/17 09:00 08/14/17 08:59 07/17/17 08:02 20 MG Miscellaneous Information (Order Awaiting Action) 1 ea QS N/A 07/15/17 08:00 08/14/17 07:59 Acetaminophen (Tylenol Tab) 650 mg Q4H PRN PO 07/15/17 03:15 08/14/17 03:14 07/16/17 07:58 650 MG Al Hydrox/Mg Hydrox/Simethicone (Maalox Max Susp) 15 ml Q4H PRN PO 07/15/17 03:15 08/14/17 03:14 Magnesium Hydroxide (Milk Of Magnesia Susp) 30 ml Q6H PRN PO 07/15/17 03:15 08/14/17 03:14 Ondansetron HCl (Zofran Inj) 4 mg Q6H PRN IV 07/15/17 03:15 08/14/17 03:14 Daptomycin 500 mg/ Syringe 10 ml @ 5 mls/min Q24H IV 07/16/17 02:00 07/26/17 01:59 07/17/17 02:49 5 MLS/MIN Polyethylene (Miralax Powder Packet) 17 gm DAILY PRN PO 07/15/17 06:00 08/14/17 05:59 Acetaminophen/ Hydrocodone Bitart ([place] 5/325 Tab) 1 tab BID PO 07/15/17 12:00 07/29/17 08:59 07/17/17 08:41 1 TAB Acetaminophen/ Hydrocodone Bitart ([place] 5/325 Tab) 1 tab Q4H PRN PO 07/15/17 13:45 07/29/17 13:44 07/17/17 07:26 1 TAB Hydromorphone HCl (Dilaudid Inj) 0.5 mg Q2H PRN IM 07/15/17 13:45 07/29/17 13:44 Gadobutrol (Gadavist) 9.5 mmol UD PRN IV 07/15/17 22:40 07/19/17 22:39 Gadobutrol (Gadavist) 9.5 mmol UD PRN IV 07/16/17 20:50 07/20/17 20:49 Baclofen (Lioresal Tab) 20 mg TID PO 07/17/17 10:00 08/16/17 09:59 07/17/17 15:46 20 MG Objective Vital Signs Date Time Temp Pulse Resp B/P (MAP) Pulse Ox O2 Delivery O2 Flow Rate FiO2 07/17/17 15:04 37.8 78 16 118/66 (83) 92 Nasal Cannula 2.0 07/17/17 08:15 Nasal Cannula 1.5 07/17/17 06:54 37.2 83 18 112/67 (82) 95 Nasal Cannula 2.0 07/17/17 03:57 38.0 78 18 95/54 (68) 98 Nasal Cannula 2.0 07/16/17 23:15 36.9 76 22 96/59 (71) 94 Nasal Cannula 1.5 Humidified Oxygen 07/16/17 23:15 94 Nasal Cannula 1.5 Humidified Oxygen 07/16/17 22:56 36.8 85 18 104/59 (74) 95 Nasal Cannula 2.0 Humidified Oxygen 07/16/17 16:05 93/54 (67) Physical Exam Comments: General Appearance: WD/WN, no apparent distress Head: normocephalic Eyes: normal inspection ENT: normal ENT inspection, pharynx normal Neck: supple, no JVD Respiratory/Chest: chest non-tender, lungs clear, normal breath sounds Cardiovascular: regular rate, rhythm, no edema, no gallop Abdomen/GI: normal bowel sounds, non tender to palpation, vac in place, no surrounding erythema Back: normal inspection, no CVA tenderness Neurologic/Psych: 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 tested, alert, normal mood/affect, oriented x 3, + pertinent finding (Chronic paraplegia as above) Skin: + pertinent finding (Inflammation of abdominal wall as above - abscess at surgical site) Laboratory Results Last 24 Hours Test 07/17/17 06:35 07/17/17 11:21 Urine Color YELLOW Urine Appearance CLOUDY Urine pH 5.0 Urine Specific [place] 1.028 Urine Protein NEG Urine Glucose (UA) NEG Urine Ketones NEG Urine Occult Blood NEG Urine Nitrite NEG Urine Bilirubin NEG Urine Urobilinogen NEG Urine Leukocyte Esterase SMALL Urine WBC (Auto) 5-10 /hpf Urine RBC (Auto) 0-4 /hpf Urine Hyaline Casts (Auto) 1-5 /lpf Urine Epithelial Cells (Auto) >30 /lpf Urine Bacteria (Auto) 2+ Urine Renal Epithelial Cells /lpf Urine Pathogenic Casts /lpf White Blood Count 11.40 K/uL Red Blood Count 3.23 M/uL Hemoglobin 9.4 g/dL Hematocrit 28.7 % Mean Corpuscular Volume 88.9 fL Mean Corpuscular Hemoglobin 29.1 pg Mean Corpuscular Hemoglobin Concent 32.8 g/dl Platelet Count 130 K/uL Mean Platelet Volume 10.4 fL Neutrophils (%) (Auto) 84.8 % Lymphocytes (%) (Auto) 6.6 % Monocytes (%) (Auto) 7.3 % Eosinophils (%) (Auto) 0.5 % Basophils (%) (Auto) 0.3 % Neutrophils # (Auto) 9.67 K/uL Lymphocytes # (Auto) 0.75 K/uL Monocytes # (Auto) 0.83 K/uL Eosinophils # (Auto) 0.06 K/uL Basophils # (Auto) 0.03 K/uL RDW Standard Deviation 44.2 fL RDW Coefficient of Variation 13.4 % Immature Granulocyte % (Auto) 0.5 % Immature Granulocyte # (Auto) 0.06 K/uL Sodium Level 137 mmol/L Potassium Level 3.7 mmol/L Chloride Level 106 mmol/L Carbon Dioxide Level 27 mmol/L Anion Gap 4.0 mmol/L Blood Urea Nitrogen 23 mg/dl Creatinine 0.83 mg/dl Est Creatinine Clear Calc Drug Dose 100.2 ml/min Estimated GFR () 104.8 Estimated GFR (Non- 90.4 BUN/Creatinine Ratio 27.5 Random Glucose 100 mg/dl Calcium Level 8.3 mg/dl Assessment and Plan 67 y/o M Hx paraplegia following spinal cord injury, neurogenic bladder, depression, HTN, DVT, traumatic brain injury. Pt had a revision of a Baclofen pump which was the 4th such revision. He developed pain and swelling in the area. He could not confirm a fever. He denies additional acute symptoms. 1) Abscess at site of Baclofen pump placement and possibly posterior to L1 - Patient had pump removed and abscess incised and drained. Patient however, has been intermittently febrile, however less than prior day. WBC has improved. Awaiting further imaging to rule out lumbar involvement. Including MRI lumbar and T spine: An equivocal epidural collection is questioned within the posterior thecal sac at the level of L2 as above. This is not well assessed and a small epidural abscess is suspected. Awaiting input Neurosurgery input. Pt placed on Aztreonam, Dapto in ER Cuurently on dapto Wound cultures pending 2) HTN - cont Lisinopril 3) Spinal cord injury - cont Baclofen pending pump replacement - will likely need to transition to oral for a period - cont Oxycodone as needed 4)hypokalemia: improved. still gave supplemented dose. Full code - SCDs pending surgery eval Continued [facility] stay due to: fever, multiple IV medications needed
[2017-07-17] MEDS: DONEPEZIL HCL 10 MG TAB PO SCH (22:26)
[2017-07-17 23:18] VITALS: BP 103/59; PULSE 78; TEMP 39; O2SAT 94
[2017-07-18] VITALS (9 sets, daily range): BP systolic 100–153; BP diastolic 57–78; PULSE 70–77; TEMP 36.6–38.6; O2SAT 93–94
[2017-07-18] MEDS: DAPTOmycin IV 500 MG in SYRINGE 0 ML IV SCH (02:28)
[2017-07-18 07:47] LABS: BASO % 0.3 %; BASO ABS # 0.03 K/uL (0-0.2); EOS % 0.5 %; EOS ABS # 0.06 K/uL (0-0.5); HEMATOCRIT 29.9 % (42-52); HEMOGLOBIN 9.8 g/dL (14.0-18.0); IG# 0.14 K/uL (0.00-0.02); LYMPH % 5.2 %; LYMPH ABS # 0.58 K/uL (1.2-3.4); MEAN CELL VOLUME 88.5 fL (80-100); MEAN CORPUSCULAR HGB CONC 32.8 g/dl (32-36); MEAN PLATELET VOLUME 10.4 fL (7.4-10.4); MONO % 9.5 %; MONO ABS # 1.05 K/uL (0.11-0.59); NEUT % 83.2 %; PLATELET COUNT 146 K/uL (130-400); RED CELL DISTRIBUTION WIDTH CV 13.4 % (11.5-14.5); RED CELL DISTRIBUTION WIDTH SD 43.1 fL (36.4-46.3); WHITE BLOOD COUNT 11.06 K/uL (4.8-10.8)
[2017-07-18 08:17] LABS: CALCIUM 8.5 mg/dl (8.5-10.1); CREATININE 0.81 mg/dl (0.60-1.40); POTASSIUM 3.6 mmol/L (3.5-5.1)
[2017-07-18] MEDS: CALCIUM 600MG + VIT D 400 IU TAB PO SCH (09:48)
[2017-07-18] MEDS: ASCORBIC ACID 500 MG TAB PO SCH (09:49)
[2017-07-18] MEDS: LISINOPRIL 20 MG TAB PO SCH (09:49)
[2017-07-18] MEDS: ASPIRIN 81 MG ECTAB PO SCH (09:49)
[2017-07-18] MEDS: DULOXETINE HCL 60 MG CAP PO SCH (09:50)
[2017-07-18] MEDS: HYDROCODONE/ACETAMIN 5/325MG TAB PO SCH ×2 (09:52→21:20)
--- NOTE | 2017-07-18 10:22 | Progress Note ---
Subjective Date of Service: Jul 18, 2017. Subjective Pt evaluation today including: conversation w/ patient, physical exam, chart review, lab review pt still with fevers overnight, tmax 39 however, he denies f/c. Only complaint this am is on back pain. back dressing not changed, some drainage noted per nursing. tolerating dapto. All blood cultures + to date MSSA 07/15/07/16, 07/17 pending at time of my exam. OR cultures with MSSA as well. wbc down from admission. MRI with ? epidural abscess. Denies cp, cough, sob, n/v/d. All remaining ros reviewed and are negative. Problem List Medical Problems: (1) Infection of intrathecal pump Status: Acute Objective Vital Signs Date Time Temp Pulse Resp B/P (MAP) Pulse Ox O2 Delivery O2 Flow Rate FiO2 07/18/17 07:45 94 Room Air 2.0 07/18/17 07:00 37.1 70 17 105/61 (76) 94 Room Air 07/18/17 03:05 36.7 71 18 100/57 (71) 93 Nasal Cannula 2.0 07/18/17 01:13 38.6 07/18/17 00:05 38.0 07/18/17 00:00 Nasal Cannula 1.5 Humidified Oxygen 07/17/17 23:18 39.0 78 18 103/59 (74) 94 Nasal Cannula 2.0 07/17/17 15:40 92 Nasal Cannula 1.5 07/17/17 15:04 37.8 78 16 118/66 (83) 92 Nasal Cannula 2.0 Physical Exam General Appearance: WD/WN, no apparent distress Eyes: normal inspection, EOMI Neck: supple Respiratory/Chest: lungs clear, normal breath sounds, no respiratory distress Cardiovascular: regular rate, rhythm, no edema, no murmur Abdomen: non tender, soft Extremities: non-tender, no pedal edema Neurologic/Psychiatric: alert, oriented x 3 Skin: normal color Comments: wound vac in place. back dressing intact, tender to palpation Laboratory Results Item Value Date Time Blood Culture - Preliminary Resulted 07/16/17 1036 Blood Staphylococcus Aureus Blood Culture - Preliminary Resulted 07/16/17 1023 Blood Staphylococcus Aureus Blood Culture - Final Complete 07/15/17 1526 Blood Staphylococcus Aureus Blood Culture - Preliminary Resulted 07/15/17 1515 Blood Staphylococcus Aureus Gram Stain - Final Resulted 07/15/17 1253 Drainage-Deep Abdomen Gram Stain - Final Resulted 07/15/17 1213 Drainage-Deep Back Blood Culture - Final Complete 07/15/17 0020 Blood Staphylococcus Aureus Blood Culture - Final Complete 07/15/17 0005 Blood Staphylococcus Aureus Gram Stain - Final Complete 07/14/17 0000 Incision Site Abdomin, Right Lower Quadrant Last 24 Hours Test 07/17/17 11:21 07/18/17 07:27 White Blood Count 11.40 K/uL 11.06 K/uL Red Blood Count 3.23 M/uL 3.38 M/uL Hemoglobin 9.4 g/dL 9.8 g/dL Hematocrit 28.7 % 29.9 % Mean Corpuscular Volume 88.9 fL 88.5 fL Mean Corpuscular Hemoglobin 29.1 pg 29.0 pg Mean Corpuscular Hemoglobin Concent 32.8 g/dl 32.8 g/dl Platelet Count 130 K/uL 146 K/uL Mean Platelet Volume 10.4 fL 10.4 fL Neutrophils (%) (Auto) 84.8 % 83.2 % Lymphocytes (%) (Auto) 6.6 % 5.2 % Monocytes (%) (Auto) 7.3 % 9.5 % Eosinophils (%) (Auto) 0.5 % 0.5 % Basophils (%) (Auto) 0.3 % 0.3 % Neutrophils # (Auto) 9.67 K/uL 9.20 K/uL Lymphocytes # (Auto) 0.75 K/uL 0.58 K/uL Monocytes # (Auto) 0.83 K/uL 1.05 K/uL Eosinophils # (Auto) 0.06 K/uL 0.06 K/uL Basophils # (Auto) 0.03 K/uL 0.03 K/uL RDW Standard Deviation 44.2 fL 43.1 fL RDW Coefficient of Variation 13.4 % 13.4 % Immature Granulocyte % (Auto) 0.5 % 1.3 % Immature Granulocyte # (Auto) 0.06 K/uL 0.14 K/uL Sodium Level 137 mmol/L 138 mmol/L Potassium Level 3.7 mmol/L 3.6 mmol/L Chloride Level 106 mmol/L 104 mmol/L Carbon Dioxide Level 27 mmol/L 25 mmol/L Anion Gap 4.0 mmol/L 9.0 mmol/L Blood Urea Nitrogen 23 mg/dl 24 mg/dl Creatinine 0.83 mg/dl 0.81 mg/dl Est Creatinine Clear Calc Drug Dose 100.2 ml/min 102.7 ml/min Estimated GFR () 104.8 105.8 Estimated GFR (Non- 90.4 91.3 BUN/Creatinine Ratio 27.5 29.3 Random Glucose 100 mg/dl 90 mg/dl Calcium Level 8.3 mg/dl 8.5 mg/dl Assessment and Plan (1) Staphylococcus aureus septicemia Assessment & Plan: pt continues on dapto, repeat cultures pending. ? need for neurosurgery with persistent infection/bacteremia and fevers (2) Infection of intrathecal pump Continued [facility] stay due to: fever, multiple IV medications needed Problem Qualifiers (1) Infection of intrathecal pump: Encounter type: initial encounter Qualified Codes: T85.738A - Infection and inflammatory reaction due to other nervous system device, implant or graft, initial encounter
--- NOTE | 2017-07-18 10:59 | Pain Management Progress Note ---
Pain Management Progress Note Date of Service Jul 18, 2017. Subjective 63-year-old male status post explantation of intrathecal pump secondary to infection. He reports that he's been feeling well and was laughing and smiling during today's interview. He does report that he's having spasms predominantly at night that is somewhat prohibitive of him getting a restful sleep area he does report that the increase in baclofen from yesterday was beneficial. He continues to note pain over his lumbar spine as well as over his abdominal wound but has utilize hydrocodone on a sparing basis with good efficacy. He denies any new neurological symptoms including any weakness, perineal pain, increased low back pain or any other constitutional symptoms that have changed or worsened since his admission. Pain has ranged from 0-6 out of 10. He was noted to have fever last evening but the patient remarks that he did not clinically notice. Objective Vital Signs: Last Vital Signs Documentation Date Time Temp Pulse Resp B/P (MAP) Pulse Ox O2 Delivery O2 Flow Rate FiO2 07/18/17 07:45 94 Room Air 2.0 07/18/17 07:00 37.1 70 17 105/61 (76) 07/15/17 05:52 99 Physical Exam: Galileo remains awake, alert, and oriented times place and person. He is calm and cooperative on exam appears in no acute distress HEENT normocephalic and nontraumatic, pupils are equally round and react to light His normal chest wall excursion and no audible wheezes or rhonchi Regular rate and rhythm A wound VAC is in place over the right lower quadrant abdominal wound and C/D/I dressing over the lumbar wound Gait or transfers were not observed He does have noted rigidity in right greater than left lower extremity. Laboratory Laboratory Findings 07/18/17 07:27 Red Blood Count 3.38 L, Mean Corpuscular Volume 88.5, Mean Corpuscular Hemoglobin 29.0, Mean Corpuscular Hemoglobin Concent 32.8, Mean Platelet Volume 10.4, Neutrophils (%) (Auto) 83.2, Lymphocytes (%) (Auto) 5.2, Monocytes (%) ( Auto) 9.5, Eosinophils (%) (Auto) 0.5, Basophils (%) (Auto) 0.3, Neutrophils # ( Auto) 9.20 H, Lymphocytes # (Auto) 0.58 L, Monocytes # (Auto) 1.05 H, Eosinophils # (Auto) 0.06, Basophils # (Auto) 0.03 Imaging MRI: reports reviewed, images reviewed Assessment 1. Status post explantation of intrathecal pump and catheter system for right lower quadrant abdominal wound site infection. 2. MRI finding suggestive of possible granuloma versus epidural/intrathecal abscess at L2 level. 3. Spinal cord injury with paraparesis. Recommendations 1. Dr. Vieira spoke with Dr. Benoit [facility] neurosurgery last evening in regards to the patient. Dr. Benoit reviewed the MRI images and suspects that the L2 region shows granuloma formation rather than abscess. Dr. Benoit recommended clinically following the patient but provided that white count continued to decline and did not have any clinical symptoms of abscess recommended performing MRI with contrast early next week to look for any anatomic changes. 2. Appreciate hospitalist and infectious disease input in regards to this patient. 3. Recommend increasing baclofen to 20 mg by mouth 4 times daily to diminish spasm volume. 4. Continue hydrocodone to diminish postoperative pain. 5. We will continue to follow.
[2017-07-18] MEDS: BACLOFEN 10 MG TAB PO SCH ×3 (12:58→21:20)
--- NOTE | 2017-07-18 14:11 | Wound Progress Note: Inpatient ---
Wound Progress Note Date of Service Jul 18, 2017. Subjective Pt evaluation today including: conversation w/ patient, physical exam, chart review Patient seen today for follow-up evaluation of postsurgical nonhealing abdominal wound following wound VAC therapy. Patient has no specific complaints today. Objective Vital Signs Date Time Temp Pulse Resp B/P (MAP) Pulse Ox O2 Delivery O2 Flow Rate FiO2 07/18/17 07:45 94 Room Air 2.0 07/18/17 07:00 37.1 70 17 105/61 (76) 94 Room Air 07/18/17 03:05 36.7 71 18 100/57 (71) 93 Nasal Cannula 2.0 07/18/17 01:13 38.6 07/18/17 00:05 38.0 07/18/17 00:00 Nasal Cannula 1.5 Humidified Oxygen 07/17/17 23:18 39.0 78 18 103/59 (74) 94 Nasal Cannula 2.0 07/17/17 15:40 92 Nasal Cannula 1.5 07/17/17 15:04 37.8 78 16 118/66 (83) 92 Nasal Cannula 2.0 Physical Exam Notes: Patients vital signs were reviewed and found unremarkable patient is afebrile. Excellent granulation tissue is beginning to evolve throughout the entire base. Decreased undermining is also noted inferiorly. There is no slough or surrounding eschar formation. Active drainage or odor noted. No periwound wound erythema. Laboratory Results Last 24 Hours Test 07/18/17 07:27 White Blood Count 11.06 K/uL Red Blood Count 3.38 M/uL Hemoglobin 9.8 g/dL Hematocrit 29.9 % Mean Corpuscular Volume 88.5 fL Mean Corpuscular Hemoglobin 29.0 pg Mean Corpuscular Hemoglobin Concent 32.8 g/dl Platelet Count 146 K/uL Mean Platelet Volume 10.4 fL Neutrophils (%) (Auto) 83.2 % Lymphocytes (%) (Auto) 5.2 % Monocytes (%) (Auto) 9.5 % Eosinophils (%) (Auto) 0.5 % Basophils (%) (Auto) 0.3 % Neutrophils # (Auto) 9.20 K/uL Lymphocytes # (Auto) 0.58 K/uL Monocytes # (Auto) 1.05 K/uL Eosinophils # (Auto) 0.06 K/uL Basophils # (Auto) 0.03 K/uL RDW Standard Deviation 43.1 fL RDW Coefficient of Variation 13.4 % Immature Granulocyte % (Auto) 1.3 % Immature Granulocyte # (Auto) 0.14 K/uL Sodium Level 138 mmol/L Potassium Level 3.6 mmol/L Chloride Level 104 mmol/L Carbon Dioxide Level 25 mmol/L Anion Gap 9.0 mmol/L Blood Urea Nitrogen 24 mg/dl Creatinine 0.81 mg/dl Est Creatinine Clear Calc Drug Dose 102.7 ml/min Estimated GFR () 105.8 Estimated GFR (Non- 91.3 BUN/Creatinine Ratio 29.3 Random Glucose 90 mg/dl Calcium Level 8.5 mg/dl Total Creatine Kinase 153 U/L Assessment and Plan Assessment: Nonhealing postoperative wound abdominal wall Plan: No debridement is indicated. The site will be managed with a wound VAC black foam 125 mm of negative pressure. Patient will continue to be monitored during his hospitalization followed up in the outpatient clinic upon discharge.
[2017-07-18] MEDS: HYDROmorphone INJ 0.5 MG/0.5 ML SYR IV PRN ×2 (14:51→19:36)
--- NOTE | 2017-07-18 15:55 | Progress Note ---
Subjective Date of Service: Jul 18, 2017. Problem List Medical Problems: (1) Infection of intrathecal pump Status: Acute Objective Vital Signs Date Time Temp Pulse Resp B/P (MAP) Pulse Ox O2 Delivery O2 Flow Rate FiO2 07/18/17 15:27 37.5 77 16 108/58 (75) 94 Room Air 07/18/17 07:45 94 Room Air 2.0 07/18/17 07:00 37.1 70 17 105/61 (76) 94 Room Air 07/18/17 03:05 36.7 71 18 100/57 (71) 93 Nasal Cannula 2.0 07/18/17 01:13 38.6 07/18/17 00:05 38.0 07/18/17 00:00 Nasal Cannula 1.5 Humidified Oxygen 07/17/17 23:18 39.0 78 18 103/59 (74) 94 Nasal Cannula 2.0 Laboratory Results Last 24 Hours Test 07/18/17 07:27 White Blood Count 11.06 K/uL Red Blood Count 3.38 M/uL Hemoglobin 9.8 g/dL Hematocrit 29.9 % Mean Corpuscular Volume 88.5 fL Mean Corpuscular Hemoglobin 29.0 pg Mean Corpuscular Hemoglobin Concent 32.8 g/dl Platelet Count 146 K/uL Mean Platelet Volume 10.4 fL Neutrophils (%) (Auto) 83.2 % Lymphocytes (%) (Auto) 5.2 % Monocytes (%) (Auto) 9.5 % Eosinophils (%) (Auto) 0.5 % Basophils (%) (Auto) 0.3 % Neutrophils # (Auto) 9.20 K/uL Lymphocytes # (Auto) 0.58 K/uL Monocytes # (Auto) 1.05 K/uL Eosinophils # (Auto) 0.06 K/uL Basophils # (Auto) 0.03 K/uL RDW Standard Deviation 43.1 fL RDW Coefficient of Variation 13.4 % Immature Granulocyte % (Auto) 1.3 % Immature Granulocyte # (Auto) 0.14 K/uL Sodium Level 138 mmol/L Potassium Level 3.6 mmol/L Chloride Level 104 mmol/L Carbon Dioxide Level 25 mmol/L Anion Gap 9.0 mmol/L Blood Urea Nitrogen 24 mg/dl Creatinine 0.81 mg/dl Est Creatinine Clear Calc Drug Dose 102.7 ml/min Estimated GFR () 105.8 Estimated GFR (Non- 91.3 BUN/Creatinine Ratio 29.3 Random Glucose 90 mg/dl Calcium Level 8.5 mg/dl Total Creatine Kinase 153 U/L Assessment and Plan 67 y/o M Hx paraplegia following spinal cord injury, neurogenic bladder, depression, HTN, DVT, traumatic brain injury. Pt had a revision of a Baclofen pump which was the 4th such revision. He developed pain and swelling in the area. He could not confirm a fever. He denies additional acute symptoms. 1) Abscess at site of Baclofen pump placement and possibly posterior to L1 - Patient had pump removed and abscess incised and drained. Patient however, has been intermittently febrile, however less than prior day. WBC has improved. Awaiting further imaging to rule out lumbar involvement. Including MRI lumbar and T spine: An equivocal epidural collection is questioned within the posterior thecal sac at the level of L2 as above. This is not well assessed and a small epidural abscess is suspected. Awaiting input Neurosurgery input. Pt placed on Aztreonam, Dapto in ER Cuurently on dapto Wound cultures pending 2) HTN - cont Lisinopril 3) Spinal cord injury - cont Baclofen pending pump replacement - will likely need to transition to oral for a period - cont Oxycodone as needed 4)hypokalemia: improved. still gave supplemented dose. Full code - SCDs pending surgery eval Continued [facility] stay due to: fever, multiple IV medications needed
[2017-07-18] MEDS ORDERED: GADAVIST IV PRN (16:45)
--- NOTE | 2017-07-18 17:18 | DIAGNOSTIC IMAGING REPORT ---
MRI LUMBAR SPINE COMBO CLINICAL HISTORY: Worsening back pain. Concern for intrathecal abscess. COMPARISON STUDY: Abdominal CT dated 07/15/2017. MRI of thoracic spine dated 07/15/2017. MRI of the lumbar spine dated 07/16/2017. TECHNIQUE: MRI of the lumbar spine is performed utilizing various T1 and T2-weighted sequences in the axial and sagittal planes. Contrast-enhanced sequences are acquired following the IV administration of 9 cc of Gadavist. The examination is modestly degraded by susceptibility artifact from metallic hardware and motion. FINDINGS: Lumbar spine: Vertebral body height and alignment are maintained throughout the lumbar spine. There is a hemitransitional lumbosacral segment will be labeled L5 for the purposes of this examination. Marrow signal intensity is heterogeneous and there is fatty replacement. The transverse and spinous processes are grossly intact. There is no evidence of spondylolysis. No destructive osseous lesion is seen. Small anterior osteophytes are seen throughout. Mild degenerative endplate edema is seen at L3-L4. Spinal rods are present within the lower thoracic region, terminating at L1. Intervertebral discs: Degenerative disc desiccation is seen throughout the lumbar spine. There is moderate loss of height at L3-L4 and L4-L5. Fluid is again seen within the L3-L4 disc space. Spinal cord and central canal: The spinal cord is not well assessed due to extensive susceptibility artifact. The nerve roots of the cauda equina are normal in morphology. A posterior epidural fluid collection is again identified eccentric to the left on axial T1 postcontrast image #11and measures 3.4 x 1.2 x 0.7 cm. This is T2 hyperintense, T1 hypointense, and demonstrates peripheral enhancement. This is seen at L2-L3 and causes mild mass effect on the posterior aspect of the thecal sac. T12-L1: Not well evaluated due to susceptibility artifact. L2-L3: Grossly unremarkable. L2-L3: The central canal and neural foramina are grossly clear. Facet arthropathy is no consequence. L3-L4: There is a posterior disc bulge with annular fissure. In conjunction with hypertrophy of the ligamentum flavum there is at least moderate central canal stenosis with a minimum AP diameter of 6 mm. There is bilateral subarticular stenosis. The disc bulge may impinge on the exiting bilateral L4 and the transiting bilateral nerve roots. Facet arthropathy causes at least mild bilateral neural foraminal stenosis. L4-L5: There is a posterior disc bulge. There is no significant compromise of the central canal. There is left-sided subarticular stenosis, with possible impingement on the exiting left L4 and the transiting left L5 nerve roots. L5-S1: There is a small posterior disc bulge eccentric to left. This causes left-sided subarticular stenosis and impinges on the exiting left L5 nerve root. Facet arthropathy bony overgrowth causes moderate to severe left-sided neural foraminal stenosis. Sacrum: The visualized sacrum is normal in morphology and signal intensity noting significant fatty marrow change. Soft tissues: There is significant fatty atrophy of the paraspinous musculature. There is no evidence of psoas muscle fluid collection. A 4.5 cm T1 and T2 hypointense structure within the posterior soft tissues at L1-L2 likely represents the site of a stimulator device removal. There is a tiny left renal cyst. IMPRESSION: 1. Again seen is a peripherally enhancing fluid collection within the posterior epidural space at the level of L2-L3 as above. Epidural abscess is the diagnosis of exclusion, and this causes mild mass effect on the posterior aspect of the thecal sac. This is similar in appearance to the 07/16/2017 examination but is better visualized due to improved image quality. 2. Fluid is again seen within the L3-L4 disc space. This is nonspecific and discitis would be impossible to exclude. Clinical correlation will be essential. There is no evidence of corresponding osteomyelitis. 3. Postoperative and spondylotic change as above. Findings were discussed with Dr. Vieira at the time of interpretation. Electronically signed by: Santhosh Hassan M.D. 07/18/2017 5:16 PM Dictated Date/Time: 07/18/2017 5:05 PM
[2017-07-18] MEDS ORDERED: LRS10 PO (18:26)
[2017-07-18] MEDS ORDERED: ZFRI4 IV (18:26)
[2017-07-18] MEDS ORDERED: MRLP17X PO (18:26)
[2017-07-18] MEDS ORDERED: DLDI.5 IV (18:26)
--- NOTE | 2017-07-18 18:29 | Discharge Instructions ---
Discharge Instructions Date of Service Jul 18, 2017. Admission Reason for Admission: Abdominal Abscess Discharge Discharge Diagnosis / Problem: Possible Epidural Abscess Discharge Goals Goal(s): Decrease discomfort, Improve function Activity Recommendations Activity Level: Bedrest . Additional Information Patient informed of condition: Yes Advance Directives: No DNR: No Level of Care: Other (Transferred to [facility]) Communicable Disease: No Prognosis: Stable Instructions / Follow-Up Instructions / Follow-Up Will be admitted under Dr. Vicente Daptomycin 500 mg IV q24. Dose given at 2-3 am Current Hospital Diet Patient's current hospital diet: Regular Diet Discharge Diet Recommended Diet: Regular Diet Procedures Procedures Performed: Explantiaon of intrathecal catheter and pump Pending Studies Studies pending at discharge: no Physician Orders On Transfer POLST Discussion: Not Applicable Medical Emergencies . Who to Call and When: Medical Emergencies: If at any time you feel your situation is an emergency, please call 911 immediately. . Non-Emergent Contact Non-Emergency issues call your: Primary Care Provider Call Non-Emergent contact if: you have a fever . . "Provider Documentation" section prepared by Dion Langston. . Core Measure Problem Core Measures: None
--- NOTE | 2017-07-18 19:10 | Pain Management Progress Note ---
Pain Management Progress Note Date of Service Jul 18, 2017. Subjective Earlier this afternoon Mr. Cevallos complained of experiencing acute onset of severe back pain that was not responding to IV hydromorphone and oral hydrocodone. He also continues expends low-grade fever with a white count of 11 ,000. He denies any neurological changes although difficult to assess with the setting of baseline neurological deficits that he already has chronically. Because of the change in his symptoms, an MRI was ordered. He demonstrated peripheral enhancement of the intrathecal mass felt to be an abscess. Additionally, he demonstrated potential discitis at L4/L5 level. At this stage , it was recommended to the family and the patient to transfer where patient can get a neurosurgical opinion and neurosurgical care. After discussion of vibration, and elected to have the patient transferred to [facility] in [place]. Arrangements were made for patient be transferred to Dr. Gregory Vicente of neurosurgery Department. Patient will travel by ground transport tonight. Objective Vital Signs: Last Vital Signs Documentation Date Time Temp Pulse Resp B/P (MAP) Pulse Ox O2 Delivery O2 Flow Rate FiO2 07/18/17 15:27 37.5 77 16 108/58 (75) 94 Room Air 07/18/17 07:45 2.0 07/15/17 05:52 99 Physical Exam: Although Galileo is easily arousable, he appears to be sleepy during the interview and exam. Inspection of the lumbar spine demonstrates dressing to be intact. Dressing was removed and no drainage was noted from the back wound incision. Neurologically, he continues to experience weakness in both lower extremity which is unchanged but diminished spasms. Laboratory Laboratory Findings 07/18/17 07:27 Red Blood Count 3.38 L, Mean Corpuscular Volume 88.5, Mean Corpuscular Hemoglobin 29.0, Mean Corpuscular Hemoglobin Concent 32.8, Mean Platelet Volume 10.4, Neutrophils (%) (Auto) 83.2, Lymphocytes (%) (Auto) 5.2, Monocytes (%) ( Auto) 9.5, Eosinophils (%) (Auto) 0.5, Basophils (%) (Auto) 0.3, Neutrophils # ( Auto) 9.20 H, Lymphocytes # (Auto) 0.58 L, Monocytes # (Auto) 1.05 H, Eosinophils # (Auto) 0.06, Basophils # (Auto) 0.03 Imaging MRI: enhanced MRI Findings MRI of the lumbar spine: IMPRESSION: 1. Again seen is a peripherally enhancing fluid collection within the posterior epidural space at the level of L2-L3 as above. Epidural abscess is the diagnosis of exclusion, and this causes mild mass effect on the posterior aspect of the thecal sac. This is similar in appearance to the 07/16/2017 examination but is better visualized due to improved image quality. 2. Fluid is again seen within the L3-L4 disc space. This is nonspecific and discitis would be impossible to exclude. Clinical correlation will be essential. There is no evidence of corresponding osteomyelitis. 3. Postoperative and spondylotic change as above. Findings were discussed with Dr. Vieira at the time of interpretation. Electronically signed by: Santhosh Hassan M.D. 07/18/2017 5:16 PM Dictated Date/Time: 07/18/2017 5:05 PM Assessment 1. Epidural abscess. 2. Discitis L3/L4. 3. Status post explantation of intrathecal catheter and pump system due to abdominal wound infection. 4. 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 Recommendations 1. Findings of the MRI were discussed with the patient's family including his and his daughter. They are agreeable to transfer to [facility] in [place] for neurosurgical care. Their questions were answered.
[2017-07-18] MEDS: DONEPEZIL HCL 10 MG TAB PO SCH (21:19)
--- NOTE | 2017-07-18 22:02 | Discharge Summary ---
Discharge Summary Date of Service Jul 18, 2017. Discharge Summary Admission Date: Jul 15, 2017 at 03:07 Discharge Date: Jul 18, 2017 Discharge Disposition: Acute care facility Principal Diagnosis: Epidural Abscess Problems/Secondary Diagnoses: paraplegia following spinal cord injury, neurogenic bladder, depression, HTN, DVT, traumatic brain injury Consultations: Pain Medicine Consult Assessment 1. Epidural abscess. 2. Discitis L3/L4. 3. Status post explantation of intrathecal catheter and pump system due to abdominal wound infection. 4. 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 Recommendations 1. Findings of the MRI were discussed with the patient's family including his and his daughter. They are agreeable to transfer to [facility] in [place] for neurosurgical care. Their questions were answered. ID and Ortho were also on the case Medication Reconciliation New Medications: Baclofen (Baclofen) 10 Mg Tab 20 MG PO QID for 30 Days, #240 TAB Hydromorphone HCl (Hydromorphone HCl) 0.5 Mg/0.5 Ml Inj 0.5 MG IV Q2H PRN for Pain for 30 Days Ondansetron (Ondansetron Hcl) 2 Mg/Ml Inj 4 MG IV Q6H PRN for Nausea for 30 Days Polyethylene (Miralax) 17 Gm Pow 17 GM PO DAILY PRN for Constipation for 30 Days, #1 Continued Medications: Ascorbic Acid (Vitamin C) 500 Mg Tab 1 TAB PO QAM Aspirin (Aspirin Chewable) 81 Mg Chew 81 MG PO QAM Calcium/Vitamin D (Os-Jimmie 500 Plus D) Tab 1 TAB PO QAM, TAB Cranberry (Vaccinium Macrocarp (Cranberry Extract) 200 Mg Cap 2 CAP PO QAM Donepezil Hydrochloride (Aricept) 10 Mg Tab 10 MG PO HS, 5 Refills Duloxetine Hcl (Cymbalta) 60 Mg Cap 60 MG PO QAM, CAP Hydrocodone/Acetaminophen 5MG/325MG ([place] 5MG/325MG) Tab 0.5 TAB PO BID, TAB PRN PAIN Lisinopril (Zestril) 20 Mg Tab 20 MG PO QAM, TAB Memantine Hcl (Namenda Xr) 21 Mg Cap 1 CAP PO QPM Vitamin E (Cvs Vitamin E) 400 Unit Cap 400 MG PO QAM Discharge Exam Review of Systems: Constitutional: + fever, + chills Eyes: No worsening of vision, No eye pain Respiratory: No cough, No sputum Cardiovascular: No chest pain, No orthopnea Abdomen: No pain, No nausea Musculoskeletal: + muscle pain Neurologic: No memory loss, No weakness Psychiatric: No depression symptoms Endocrine: No fatigue Hematologic / Lymphatic: No abnormal bleeding/bruising Integumentary: No rash Physical Exam: General Appearance: WD/WN, no apparent distress Eyes: normal inspection ENT: normal ENT inspection Neck: supple, no adenopathy Respiratory/Chest: chest non-tender, lungs clear, normal breath sounds Cardiovascular: regular rate, rhythm, no edema Abdomen / GI: normal bowel sounds, non tender, soft Extremities: normal inspection Neurologic/Psychiatric: alert, oriented x 3 Skin: normal color Lymphatic: no adenopathy Hospital Course 67 y/o M Hx paraplegia following spinal cord injury, neurogenic bladder, depression, HTN, DVT, traumatic brain injury. Pt had a revision of a Baclofen pump which was the 4th such revision. He developed pain and swelling in the area. He could not confirm a fever. He denies additional acute symptoms. 1) Abscess at site of Baclofen pump placement and possibly posterior to L1 - Patient had pump removed and abscess incised and drained. Patient however, has been intermittently febrile, however less than prior day. WBC has improved. 2)Epidural abscess at L2 Awaiting further imaging to rule out lumbar involvement. Including MRI lumbar and T spine: An equivocal epidural collection is questioned within the posterior thecal sac at the level of L2 as above. This is not well assessed and a small epidural abscess is suspected. Awaiting input Neurosurgery input. Pt placed on Aztreonam, Dapto in ER Cuurently on dapto Wound cultures pending Repeat imaging shows questionable abscess. case discussed with [facility]. Will be transferred tonight and will continue on daptomycin. D/W family and patient. D/w risks and benefits. patient will be transferred via BLS. 2) HTN - cont Lisinopril 3) Spinal cord injury - cont Baclofen pending pump replacement - will likely need to transition to oral for a period - cont Oxycodone as needed 4)hypokalemia: improved. still gave supplemented dose. Full code - SCDs pending surgery eval Total Time Spent: Greater than 30 minutes This includes examination of the patient, discharge planning, medication reconciliation, and communication with other providers. Discharge Instructions Please refer to the electronic Patient Visit Report (Discharge Instructions) for additional information. Additional Copies To Kang Cortez D.O.
== END 2017-07-19 00:30 | disposition short-term general hospital (02) | DRG 28 ==
LOC: C.EDB 23:14 → C.MSN 07-15 03:07 → EDBEDREQ 07-15 03:12 → ENRESERV 07-15 03:52
PROVIDERS: ADMIT Internal Medicine; ATTEND Internal Medicine Sports Medicine
PROC: 00PU03Z Removal of Infusion Device from Spinal Canal, Open Approach (ICD-10-PCS; principal; 2017-07-15 07:15)
PROC: 0JPT0VZ Removal of Infusion Pump from Trunk Subcutaneous Tissue and Fascia, Open Approach (ICD-10-PCS; principal; 2017-07-15 07:15)
DX: T85.738A Infection and inflammatory reaction due to other nervous system device, implant or graft, initial encounter (principal); G06.1 Intraspinal abscess and granuloma; K59.2 Neurogenic bowel, not elsewhere classified; L02.211 Cutaneous abscess of abdominal wall; G82.20 Paraplegia, unspecified; A41.01 Sepsis due to Methicillin susceptible Staphylococcus aureus; S06.9X9S Unspecified intracranial injury with loss of consciousness of unspecified duration, sequela; M46.46 Discitis, unspecified, lumbar region; I10 Essential (primary) hypertension; N31.9 Neuromuscular dysfunction of bladder, unspecified; F32.9 Major depressive disorder, single episode, unspecified; E87.6 Hypokalemia; Y92.019 Unspecified place in single-family (private) house as the place of occurrence of the external cause; Z88.0 Allergy status to penicillin; Z95.828 Presence of other vascular implants and grafts; Z98.1 Arthrodesis status; Z88.2 Allergy status to sulfonamides; X58.XXXS Exposure to other specified factors, sequela; Y75.2 Prosthetic and other implants, materials and neurological devices associated with adverse incidents